=== PATIENT | female | born 1940 | race Caucasian/White ===

== ENCOUNTER → 2018-04-12 14:52 | Outpatient (CLI) | payer MEDICARE, SELFPAY ==
--- NOTE | 2018-04-12 | DI.MRI.S_ITS ---
PROCEDURE: MR KNEE LT WO CON INDICATIONS: ARTHIRITIS OF LEFT KNEE TECHNIQUE: Noncontrast sagittal PD fast spin echo and T2 fast spin echo with fat saturation, sagittal 3-D FLASH with fat saturation; coronal T1 spin echo and PD fast spin echo with fat saturation, and axial PD fast spin echo with fat saturation through the knee. COMPARISON: [facility], MR, KNEE LT W/O CONTRAST, 08/14/2008, 13:07. FINDINGS: Image quality: Diagnostic. Bones and joint: There is no acute fracture or dislocation. No suspicious osseous lesions are evident. There is a moderate-sized knee joint effusion with an associated moderate-sized Jordan's cyst. There may be a small joint body on the upper portion of the Jordan's cyst. Extensive irregularity of the hyaline articular cartilage within the patellofemoral compartment and at the lateral tibiofemoral compartment is present with small to moderate-sized irregular full-thickness cartilaginous defects present. Underlying degenerative/reactive marrow changes are identified involving the lateral femoral condyle, lateral tibial plateau, and the patella. Developing marginal osteophytes are noted within all 3 compartments. There is mild irregularity of the hyaline articular cartilage within the medial compartment. The degree of chondromalacia has increased in the interim. Cruciate ligaments: The anterior and posterior cruciate ligaments are intact. However, the anterior cruciate ligament is somewhat thickened, which is suspicious for scarring from previous partial thickness injury. Menisci: There is degenerative signal of the medial and lateral menisci. There is a focal blunting on the mid aspect of the body of the lateral meniscus with only a small amount of meniscal tissue extending through the posterior horn, which may be related to previous partial meniscectomy. This appearance is new since the prior study. No detached meniscal fragments are appreciated. The medial meniscus is intact and otherwise within normal limits. Medial structures: The medial collateral ligament is intact. The semimembranosus tendon insertion is intact. The imaged portions of the pes anserinus tendons are unremarkable. No significant fluid is contained within the pes anserinus bursa. Heterogeneity of the medial patellofemoral ligament is present. Lateral structures: The popliteal tendon is intact. The lateral collateral ligament proper (fibular collateral ligament) and the proximal tibiofibular ligaments are intact. The distal aspect of the biceps femoris tendon and the iliotibial band are intact. Anterior structures: The quadriceps and patellar tendons are intact. There is edema identified within the superolateral margin of the infrapatellar fat pad. IMPRESSION: 1. Mild interval increase in degree of degenerative changes of the left knee. 2. Probable interval partial lateral meniscectomy. Please correlate clinically. 3. Moderate-sized knee joint effusion with an associated Jordan's cyst. 4. Possible scarring of the anterior cruciate ligament. No full-thickness tear. 5. Heterogeneity of the medial patellofemoral ligament may be related to interval trauma versus postoperative change. Dictated by: Carlito Riley M.D. on 04/12/2018 at 16:47 Approved by: Carlito Riley M.D. on 04/12/2018 at 16:54
== END ==
PROVIDERS: Visit Provider Orthopaedic Surgery
DX: M17.12 Unilateral primary osteoarthritis, left knee (principal); M25.462 Effusion, left knee; M71.22 Synovial cyst of popliteal space [Baker], left knee
CPT/HCPCS: 73721

== ENCOUNTER 2025-02-27 11:44 | Inpatient (IN) | payer MEDICARE, SELFPAY ==
[2025-02-19 13:59] VITALS: BMI 25.6
[2025-02-26] VITALS (12 sets, daily range): BP systolic 124–166; BP diastolic 42–86; PULSE 61–78; RESP 13–18; TEMP 36.1–36.5; O2SAT 97–100; BMI 26.0
--- NOTE | 2025-02-26 06:00 | DI.RAD.S_ITS ---
PROCEDURE: XR KNEE LT 1TO2V INDICATIONS: TKA TECHNIQUE: 2 view(s) of the knee acquired. COMPARISON: None. FINDINGS: Bones: Patient is status post knee joint arthroplasty. Hardware components are in expected positions. Visualized bony structures are intact. Soft tissues: Overlying postoperative changes are noted. IMPRESSION: Expected post-operative appearance of a knee arthroplasty. Dictated by: Eduardo Harmon M.D. on 02/27/2025 at 9:38 Approved by: Eduardo Harmon M.D. on 02/27/2025 at 9:39
[2025-02-26] MEDS: ACETAMINOPHEN 325 MG TABLET 975 MG PO (12:58)
[2025-02-26] MEDS: LACTATED RINGERS 1,000 ML 42 ML IV ×2 (12:58→15:39)
[2025-02-26] MEDS: VANCOMYCIN 1,000 MG in SODIUM CHLORIDE 0.9% 250 ML 250 MG IV (12:59)
--- NOTE | 2025-02-26 14:33 | PM.PREOP ---
Pre-operative Note Interval Note History & Physical reviewed/Exam performed by Physician: Yes Changes to H&P: No
--- NOTE | 2025-02-26 14:34 | PM.PREOP ---
Pre-operative Note Interval Note History & Physical reviewed/Exam performed by Physician: Yes Changes to H&P: No
--- NOTE | 2025-02-26 14:35 | PM.PREOP ---
Pre-operative Note Interval Note History & Physical reviewed/Exam performed by Physician: Yes Changes to H&P: No
--- NOTE | 2025-02-26 14:47 | PM.OP.1 ---
Operative Date/Time/Diagnoses Date of procedure: 02/26/25 Time of procedure: 15:00 Pre-op diagnosis: left knee OA Post-op diagnosis: same Procedure & Clinicians Procedure: Left total knee arthroplasty Same procedure as scheduled: Yes Indications: The patient has had progressively worsening left knee pain with radiographic changes consistent with arthritis. Non-operative management has failed and the patient has requested total knee replacement. The risks, benefits and alternatives to surgery were discussed with the patient prior to proceeding. Risks discussed included, but were not limited to, failure to relieve pain, stiffness, infection, nerve damage, deep venous thrombosis, pulmonary embolism, stroke, coma, heart attack, permanent paralysis and , as well as the potential need for eventual revision of the prosthetic. Surgeon: Nayana Zabala Desktop Support Specialist: Anil Davila Anesthesia Type: General and Peripheral nerve block Operative Notes Findings: With severe left knee OA, adequate stability Closure Type: primary Specimen(s): none sent Prosthetic devices, grafts, tissues, transplants, or devices: Zabala and nephsanchez tilley BCS2 size femur5, size 4 tibia, patella 35 by 7.5, poly 9 Estimated Blood Loss (mL): 250 Tourniquet time (min): 78 Procedure in detail: The patient was seen in the pre-operative area, where the patient identified the left knee as the operative site and this was marked with my initials. The patient received pre-operative antibiotics, and was taken to the operating room and placed on the operative table in the supine position. After satisfactory anesthesia, a multimedia designer out was performed. The left leg was encircled with a tourniquet about the proximal thigh, and the leg was prepared from the toes to the tourniquet with ChloroPrep in the usual fashion and draped through sterile drapes. The leg was elevated and exsanguinated with Eschmark bandage and the tourniquet inflated to [250] mmHg pressure. A PA was used during the procedure was essential for intraoperative retraction and safe implantation of the components. The knee was approached through an approximately 18 cm incision centered over the patella and carried into the knee through a medial parapatellar arthrotomy. Portion of the medial and lateral meniscus was resected. Soft tissue was carefully mobilized around the patella the patella was measured with a caliper. Bone was resected from the patella and the patellar height was reconstituted with up an appropriate sized patellar component. A cover was then placed on the patella. A small amount of additional medial and lateral meniscus was resected. Pins were placed for Patrick assisted robotic navigation in the femur and the adjustable tibial guide was pinned to the tibia. The Cori robotic assisted bur was used for the distal femoral resection. It looked like an appropriate distal femoral cut and the cut was made without difficulty. The rotation was assessed and the appropriate size femoral guide was placed on the distal femur and finishing cuts were made. There was no evidence of notching. The anterior, posterior and chamfer cuts were then made. The posterior osteophytes and soft tissues were then removed. The posterior capsule was injected with part of a mixture of 60 ml 0.25% Marcaine mixed with 20 ml Exparel for post operative pain control. The remainder of this mixture was injected into the capsule and subcutaneous tissues during cement curing. The tibial guide was meticulously navigated with the Cori robotic alignment. The proximal tibial cut was made after the guide had been appropriately adjusted. The rotation was assessed. The patient was placed in extension residual medial and lateral meniscus as well as any residual bone was carefully resected. [No] additional tibia was resected. Hemostasis was achieved especially posteriorly. Additional local was injected into the posterior capsule. The extension gap was assessed. The femoral component was trial was placed and the notch was finished. Trial tibial and femoral components were then placed and the knee placed through a range of motion. Range of motion was [0-130], with good stability throughout the range. The trials were then removed, and the tibia was finished. The bone was prepared with pulsatile lavage, and dried with a sponge. Cement was applied and the final prosthetics placed. Excess cement was removed during and after cement curing. A brief Betadine soak was performed. After confirming there was no extruded cement posteriorly, the final tibial insert was placed. The knee was copiously irrigated and the tourniquet deflated. Hemostasis was obtained with the Bovie cautery. The capsule was closed with interrupted # 1 Vicryl suture. The subcutaneous layer was closed with barbed sutures, and the skin with a running 3-0 V-Lock suture and Surgical glue. An Aquacel Ag dressing was applied and the patient was taken to recovery having tolerated the procedure well. Complications: none Post-operative Condition: stable Disposition: Acute Care Plan for aftercare: The patient will be maintained on a standard total knee replacement protocol with weight bearing as tolerated. The patient will receive aspirin and sequential compression devices for DVT prophylaxis. The patient will be discharged home when safe for the home environment.
[2025-02-26] MEDS: CEFAZOLIN 2 GM/100 ML PREMIX 100 ML IV ×2 (15:00→22:42)
--- NOTE | 2025-02-26 15:12 | SUR.OPER ---
Supine on padded OR bed. Pillow under head, arms secured on padded armboards <90 degree abduction. Safety belt across torso. Non-operative leg secured with tape over blanket over lower leg. Operative leg secured in DeMayo/Emilio/Nathe positioner. Foam padded brace at thigh of operative leg.
[2025-02-26] MEDS: TRANEXAMIC ACID 1,000 MG VIAL 1000 MG INJ ×2 (15:22→16:56)
[2025-02-26] MEDS: BUPIVACAINE LIPOSOME 266 MG/20 ML VIAL INJ (15:32)
[2025-02-26] MEDS: BUPIVACAINE 0.25% (PF) 60 ML, EPINEPHrine 0.3 MG INJ (15:32)
[2025-02-26] MEDS: OXYCODONE IR 5 MG TABLET PO (18:14)
[2025-02-26] MEDS: ONDANSETRON 4 MG/2 ML INJ IV (18:19)
[2025-02-26] MEDS: LACTATED RINGERS 1,000 ML 100 ML IV ×2 (18:22→23:02)
[2025-02-26] MEDS: ACETAMINOPHEN 325 MG TABLET 650 MG PO (18:27)
--- NOTE | 2025-02-26 18:36 | PC.NURSE ---
Patient arrives from PACU at 1745 this evening. She is initially somnolent but able to speak with her on the phone. She reports spinal block wearing off and pain to L knee and down inner thigh becoming more severe. She request prn oxycodone with zofran due to n/v with pain medication/narcotics. Admission assessment completed, SCD's in place, Call light in reach, bed alarm on, purewick in place, IVF LR at 100ml/hr, frequent rounding
[2025-02-26] MEDS: FAMOTIDINE 20 MG TABLET PO (20:29)
[2025-02-26] MEDS: ALPRAZolam 0.25 MG TABLET 0.5 MG PO (20:29)
[2025-02-26] MEDS: DOCUSATE 100 MG CAPSULE PO (20:29)
[2025-02-26] MEDS: ASPIRIN EC 81 MG TABLET PO (20:29)
[2025-02-26] MEDS: atenoloL 25 MG TABLET PO (20:30)
[2025-02-26] MEDS: KETOROLAC 30 MG/ML VIAL 15 MG IV (20:58)
[2025-02-27] VITALS: BP 158/68; PULSE 71; RESP 16; TEMP 36.2; O2SAT 99
[2025-02-27] MEDS: ACETAMINOPHEN 325 MG TABLET 650 MG PO ×4 (00:18→17:24)
[2025-02-27] MEDS: OXYCODONE IR 5 MG TABLET PO ×3 (00:19→17:25)
[2025-02-27] MEDS: ALPRAZolam 0.25 MG TABLET 0.5 MG PO (02:13)
--- NOTE | 2025-02-27 02:16 | PC.NURSE ---
C/O insomnia, states I can't sleep with all the noises from the machines. Requested another 0.5mg. of Xanax, Dr. Zabala notified order received to administered additional 0.5 mg. of Xanax. Order implemented, will continue plan of care & monitor.
[2025-02-27 05:00] VITALS: BP 134/61; PULSE 88; RESP 18; TEMP 36.6; O2SAT 94
[2025-02-27 05:55] LABS: Hematocrit 33.7 % (36-46); Hemoglobin 11.9 g/dL (12.0-16.0)
[2025-02-27] MEDS: CEFAZOLIN 2 GM/100 ML PREMIX 100 ML IV (06:39)
--- NOTE | 2025-02-27 07:38 | PM.PNPO.1 ---
Subjective Subjective Interval history: She had fair pain control overnight. She has had increased pain in her low back with pain radiating down the left leg. Her knee pain is adequately controlled. She notes she has had some increased problems with incontinence postoperatively. She previously had some mild urge incontinence. Exam Vital Signs (past 8 hours): - 02/27/25 00:00 02/27/25 05:00 Temperature 97.1 F L 97.8 F Pulse Rate 71 88 Respiratory Rate 16 18 Blood Pressure 158/68 H 134/61 Pulse Oximetry 99 94 Oxygen Flow Rate 0 0 Oxygen Delivery Method Nasal Cannula Oxygen Flow Rate 0 Narrative Exam Narrative: She was resting comfortably in bed, her dressings intact, she can fire toe flexors and extensors bilaterally, calves are soft bilaterally, she does have some numbness in bilateral lower extremities Objective Labs 02/27/25 05:00 Labs: Laboratory Results - last 24 hr 02/27/25 05:00 Hgb 11.9 L Hct 33.7 L PFSH Medical History Vertigo Anesthesia complication PONV (postoperative nausea and vomiting) Skin cancer Osteoarthritis Impaired fasting glucose Sleep apnea Asthma Ringing in ears Panic attacks HTN (hypertension) HLD (hyperlipidemia) GERD (gastroesophageal reflux disease) Fibromyalgia Chronic sinusitis Anxiety Anemia Carotid artery disease Surgical History (Updated 02/19/25 @ 14:26 by Annalise Hill RN) History of surgery Status post trigger finger release Hx of toe surgery (12/23/23) Hx of arthroscopy of left knee Hx of arthroscopy of right knee Hx of tonsillectomy History of esophagogastroduodenoscopy (EGD) Hx of colonoscopy History of hysterectomy Hx of dilation and curettage History of left-sided carotid endarterectomy (2012) History of right-sided carotid endarterectomy (~2007) Hx of sinus surgery Hx of bilateral cataract extraction Social History household members: spouse Smoking Status: Never smoker alcohol intake: former Assessment & Plan Post-op Postoperative Procedures: Procedures Operation Date: 02/26/25 13:45 Actual Procedure Side Surgeon p Total Knee Arthroplasty - Robot Left Nayana Zabala MD Postoperative day: 1 Postoperative status: other (Some sciatica and some increased urinary incontinence. Adequate knee pain control.) Postoperative status narrative: Progressing but needs mobilization with physical therapy. Postoperative plan: routine post-op care Postoperative plan narrative: We plan to mobilize her with physical therapy today. We will follow her urinary incontinence complaints. She can be discharged to home likely tomorrow as long as she is safe with physical therapy. Quality VTE Deep Vein Thrombosis/Pulmonary Embolism Present on Admission: No
[2025-02-27 08:00] VITALS: BP 135/58; PULSE 66; RESP 16; TEMP 36.5; O2SAT 93
--- NOTE | 2025-02-27 11:10 | PT.IIE ---
Current Diagnoses Unilateral primary osteoarthritis, left knee (02/27/25) Surgery Performed Operation Date: 02/26/25 13:45 Actual Procedures p Total Knee Arthroplasty - Robot(Left) - Nayana Zabala MD Surgical History (Last Updated 02/19/25 @ 14:26 by Annalise Hill, RN) History of esophagogastroduodenoscopy (EGD) History of hysterectomy History of left-sided carotid endarterectomy (2012) History of right-sided carotid endarterectomy (~2007) History of surgery Hx of arthroscopy of left knee Hx of arthroscopy of right knee Hx of bilateral cataract extraction Hx of colonoscopy Hx of dilation and curettage Hx of sinus surgery Hx of toe surgery (12/23/23) Hx of tonsillectomy Status post trigger finger release Medical History (Last Reviewed 02/26/25 @ 12:13 by Fernanda Alicia RN) Anemia Anesthesia complication Anxiety Asthma Carotid artery disease Chronic sinusitis Fibromyalgia GERD (gastroesophageal reflux disease) HLD (hyperlipidemia) HTN (hypertension) Impaired fasting glucose Osteoarthritis Panic attacks PONV (postoperative nausea and vomiting) Ringing in ears Skin cancer Sleep apnea Vertigo Physical Therapy Inpatient Evaluation/Re-Eval M1 PT/OT-IP Prior Functional Status Start: 02/27/25 07:53 Freq: NEEDED Status: Active Protocol: Document 02/27/25 11:10 AB (Rec: 02/27/25 13:11 AB [id number]) Medical Review Prior Functional Status Medical History Reviewed Yes Communication able to make needs known Mobility and Gait pt stated that she was independent with all mobilities and ambulation without AD Social History Household Members spouse Living Arrangements House Number of Floors (Floors) Two Floors Number of Stairs To Enter/Railing? pt stays on main level of the house has 1 platform step + 2 steps without rails to enter the house Home Environment Standard Height Toilet,Walk in Shower Home Equipment Front Wheel Walker,Four Wheel Walker,Quad Cane,Straight Cane ,Shower Seat without Backrest, Hand Held Shower,Grab Bars In Shower Additional Social History Comment pt has a toilet safety frame pt has an adjustable bed, hurrycane spouse with back problems and can only provide limited assistance to pt M2 PT-IP Current Condition Start: 02/27/25 07:53 Freq: NEEDED Status: Active Protocol: Document 02/27/25 11:10 AB (Rec: 02/27/25 13:11 AB [id number]) Physical Therapy Current Condition Current Condition Evaluation Date 02/27/25 Treatment Diagnosis s/p L TKA; difficulty in walking Onset Date 02/26/25 M3 PT-IP Subjective Start: 02/27/25 07:53 Freq: NEEDED Status: Active Protocol: Document 02/27/25 11:10 AB (Rec: 02/27/25 13:11 AB [id number]) Subjective Physical Therapy Visit Type Type Initial Evaluation Visit Start Time 11:10 Visit Stop Time 11:45 Number of TERMINATION CLERK Visits 0 Physical Therapy Visit Comments Patient Comments agreeable to do PT Therapy Pain Assessment Pain When Pain Assessed During Mobility Pain Present Pain Present Pain Reported Location Left Knee Intensity 4 Scale Used Numeric (0 - 10) Pain Management Techniques Apply Cold,Distraction, Modification of Treatment,Re- positioning,Timing of Activity with Medications M4 PT-IP Mobility and Gait Start: 02/27/25 07:53 Freq: NEEDED Status: Active Protocol: Document 02/27/25 11:10 AB (Rec: 02/27/25 13:11 [id number]) PT-Bed Mobility Assessment Supine to Sit Supine to Sit Standby Assistance Sit to Supine Sit to Supine Standby Assistance PT-Transfer Assessment Sit to and From Stand Sit to and from Stand Contact Guard Assistance,1 Person Assistance,Use of Upper Extremities Equipment Transfer Assistive Device Gait Belt,Front Wheeled Walker Orthotic/Prosthetic Devices or Brace: No Transfers Transfer Destination Bed,Chair Transfer Technique ambulated Transfer Ability Level of Assist Contact Guard Assistance,1 Person Assistance,Use of Upper Extremities Comments Mobility Comments pt sitting on the chair and agreeable to do PT. obtained PLOF and home set up. post-op folder provided and reviewed contents. completed seated heel slides pt completed sit to stand CGA and ambulated in room ~ 35 ft using fWW CGA. pt sat on EOB. completed sit<>supine SBA. pt completed sit to stand from EOB CGA and step transfer to chair using FWW CGA. positioned pt on the chair. call light and table placed within reach. pt stated that spouse will be coming in at ~ 2pm. will attempt caregiver training this afternoon. pt agreed. Gait Assessment Gait Gait Assistance Required: Contact Guard Assist Distance (Feet) 35 Able to Maintain Weight Bearing Status Yes During Gait Assistive Devices Assistive Device Gait Belt,Front Wheeled Walker Orthotic/Prosthetic Devices or Brace: No Gait Deviations General Gait Pattern Decreased Stride Length, Decreased Feet Clearance Factors Limiting Gait Function Factors Limiting Gait Function Decreased Activity Tolerance, Decreased Strength,Difficulty Following Directions,Limited Range of Motion,Pain,Poor Balance,Poor Safety Awareness PT-Balance Assessment Sitting Balance and Reactions Static Sitting Balance Ability Normal Dynamic Sitting Balance Ability Good Standing Balance and Reactions Static Standing Balance Ability Fair Dynamic Standing Balance Ability Fair Device Used FWW M5 PT-IP Objective Assessments Start: 02/27/25 07:53 Freq: NEEDED Status: Active Protocol: Document 02/27/25 11:10 AB (Rec: 02/27/25 13:11 AB [id number]) Orientation Orientation/Cognition Level of Alertness Alert Orientation Name,Place,Situation Language Function Ability No Deficits Noted Safety Awareness Decreased Safety Awareness Memory Description No Deficits Noted Gross Range of Motion Lower Extremity ROM Assessment Left Impaired Impairments L knee flexion: ~ 90 deg Strength Lower Extremity Strength Assessment Left Impaired Hip 4-/5 Knee 4-/5 Muscle Tone Muscle Tone WNL Yes M6 PT-IP Treatment Start: 02/27/25 07:53 Freq: NEEDED Status: Active Protocol: Document 02/27/25 11:10 AB (Rec: 02/27/25 13:11 AB [id number]) Physical Therapy Treatment Exercises Exercises Heel Slides Education Education Provided Precautions,Weight Bearing Status,Post-Op Packet,Safety M7 PT-IP Assessment and Plan Start: 02/27/25 07:53 Freq: NEEDED Status: Active Protocol: Document 02/27/25 11:10 AB (Rec: 02/27/25 13:11 AB [id number]) PT Summary Assessment and Plan Potential Rehabilitation Potential Good Status of Condition at Evaluation Evolving Summary Impairments Pain,ROM,Strength,Balance, Coordination,Sensation,Tone, Cognition,Bed Mobility, Transfers,Gait,Activity Tolerance Assessment Summary pt is an 85 y/o F s/p L TKA POD 1. pt is WBAT on LLE. pt requiring SBA for bed mobility and CGA for transfers and ambulation using fWW. pt lives with spouse but stated that spouse has back problems and limited to assistance he can provide to pt. will conduct caregiver training when appropriate as well as stair climbing training. will continue to assess. Goals Bed Mobility Goal Independent Transfer Goal Independent,Front Wheeled Walker Gait Goal Independent,Front Wheel Walker Gait Distance 150 Other Goals up/down 1 platform step using FWW + 2 steps using cane + CHAIN MAKER CGA Days to Meet Goals 5 Frequency of Treatment Frequency Of Treatment Twice a Day Treatment Plan Physical Therapy Treatment Plan Bed Mobility Training,Transfer Training,Gait Training, Therapeutic Exercise,Balance Retraining,Post Op Education, Discharge Planning,Hot or Cold Pack,Neuromuscular Re-ed, Coordination Retraining,Manual Therapy Other Recommendations and Next Treatment caregiver training Focus Weight Bearing Status Weight Bearing Status Weight Bear as Tolerated Allowed Weight Bearing Amount (enter % LLE WBAT or #) (%) Recommendations To Nursing Amount of Assist Needed 1 Person Assist Discharge Recommendations PT Discharge Recommendations Home with Assistance,Home Health Transportation Needs at Discharge Private Vehicle - PT assist 1
[2025-02-27] MEDS: ASPIRIN EC 81 MG TABLET PO (11:51)
[2025-02-27] MEDS: DOCUSATE 100 MG CAPSULE PO (11:51)
[2025-02-27 12:00] VITALS: BP 140/69; PULSE 61
--- NOTE | 2025-02-27 13:55 | OT.IP.EVAL ---
Current Diagnoses Unilateral primary osteoarthritis, left knee (02/27/25) Surgery Performed Operation Date: 02/26/25 13:45 Actual Procedures p Total Knee Arthroplasty - Robot(Left) - Nayana Zabala MD Past Medical History (Last Reviewed 02/26/25 @ 12:13 by Fernanda Alicia, [place]) Anemia Anesthesia complication Anxiety Asthma Carotid artery disease Chronic sinusitis Fibromyalgia GERD (gastroesophageal reflux disease) HLD (hyperlipidemia) HTN (hypertension) Impaired fasting glucose Osteoarthritis Panic attacks PONV (postoperative nausea and vomiting) Ringing in ears Skin cancer Sleep apnea Vertigo Surgical History (Last Updated 02/19/25 @ 14:26 by Annalise Hill, [place]) History of esophagogastroduodenoscopy (EGD) History of hysterectomy History of left-sided carotid endarterectomy (2012) History of right-sided carotid endarterectomy (~2007) History of surgery Hx of arthroscopy of left knee Hx of arthroscopy of right knee Hx of bilateral cataract extraction Hx of colonoscopy Hx of dilation and curettage Hx of sinus surgery Hx of toe surgery (12/23/23) Hx of tonsillectomy Status post trigger finger release Occupational Therapy Inpatient Evaluation/Re-Eval M1 PT/OT-IP Prior Functional Status Start: 02/27/25 07:53 Freq: NEEDED Status: Active Protocol: Document 02/27/25 14:08 CGR (Rec: 02/27/25 14:57 CGR Desktop) Medical Review Prior Functional Status Medical History Reviewed Yes Communication able to make needs known Mobility and Gait pt stated that she was independent with all mobilities and ambulation without AD Activities of Daily Living and IADL's Pt states she was IND in ADLs at baseline but has the equipment from previous surgeries Social History Household Members spouse Living Arrangements House Number of Floors (Floors) Two Floors Number of Stairs To Enter/Railing? 2-3 steps without railing. Pt stays on the main level. Home Environment Standard Height Toilet,Walk in Shower Home Equipment Front Wheel Walker,Straight Cane,Manual Wheelchair,Shower Seat without Backrest,Hand Held Shower,Grab Bars Near Toilet Employment Status Retired Additional Social History Comment Pt has an adjustable bed and a toilet safety frame. M2 OT-IP Current Condition Start: 02/27/25 14:07 Freq: Status: Active Protocol: Document 02/27/25 14:08 CGR (Rec: 02/27/25 14:57 CGR Desktop) Occupational Therapy Current Condition Current Condition Evaluation Date 02/26/25 Treatment Diagnosis L TKA Diagnosis Onset Date 02/27/25 Weight Bearing Status Weight Bearing Status Weight Bear as Tolerated M3 OT- IP Subjective and Pain Start: 02/27/25 14:07 Freq: Status: Active Protocol: Document 02/27/25 14:08 CGR (Rec: 02/27/25 14:57 CGR Desktop) OT- Subjective Occupational Therapy Visit Type Type Initial Evaluation Visit Start Time 13:41 Visit Stop Time 13:55 Notes Pt is up in bathroom when OT enters OT Pain Assessment Pain When Pain Assessed During Mobility Pain Present Pain Present Pain Reported Location Left Knee Intensity 4 Scale Used Numeric (0 - 10) Management Techniques Modification of Treatment,Re- positioning M4 OT- IP ADL's Start: 02/27/25 14:07 Freq: Status: Active Protocol: Document 02/27/25 14:08 CGR (Rec: 02/27/25 14:57 CGR Desktop) OT [id number] Comments OT Self-Feeding Comments not meal time OT ADL-Grooming General Evaluation Grooming Ability Independent Areas Needing Assistance Combing/Brushing Hair,Face Washing Comments OT Grooming Comments standing at sink OT ADL-Oral Care Comments Oral Care Comments not performed OT ADL-Dressing General Eval Lower Body Dressing Ability Independent Areas Needing Assistance Socks Comments OT Dressing Comments sitting in bed OT ADL-Toileting General Evaluation Toileting Ability Independent Comments OT Toileting Comments sitting on toilet OT ADL-Bathing Comments OT Bathing Comments not performed M5 OT- IP IADL's Start: 02/27/25 14:07 Freq: Status: Active Protocol: Document 02/27/25 14:08 CGR (Rec: 02/27/25 14:57 CGR Desktop) OT-Instrumental Activities of Daily Living Deficits IADL Deficits Identified No Deficits Home Safety Awareness Awareness of Need for Assistance at Home Good Awareness Ability to Problem Solve Emergency Able to Problem Solve Situations Medication Management Medication Management No Deficits Identified Money Management Money Management No Deficits Identified Meal Preparation Meal Preparation No Deficits Identified Psychiatric Nurse Practitioner Psychiatric Nurse Practitioner No Deficits Identified Driving Driving Comments Pt is an active double bottom driver M6 OT- IP Functional Cognition Start: 02/27/25 14:07 Freq: Status: Active Protocol: Document 02/27/25 14:08 CGR (Rec: 02/27/25 14:57 CGR Desktop) Cognitive Factors Limiting Selfcare Function Cognitive Ability Level of Alertness Alert Patient Orientation Name,Age,Birthday,Month,Date, Year,Day of Week,Place, Situation Attention Span Ability Capable of Focused Attention, Capable of Sustained Attention Ability to Follow Commands Able to Follow Multi-Step Commands OT- Vision and Hearing OT- Hearing Assessment OT- Hearing Assessment WFL OT- Vision Assessment Visual Acuity WFL Visual Attentiveness WFL Occular Pursuits WFL Visual Convergence WFL M7 OT- IP Mobility and Balance Start: 02/27/25 14:07 Freq: Status: Active Protocol: Document 02/27/25 14:08 CGR (Rec: 02/27/25 14:57 CGR Desktop) OT- Bed Mobility Assessment Sit to Supine Sit to Supine Assist Independent Scooting Scooting to Edge of Bed Independent OT-Transfer Assessment Sit to and From Stand Sit to and from Stand Independent,1 Person Assistance Transfers Transfer Ability Independent,1 Person Assistance Technique Transfer Destination Bed,Toilet Transfer Technique Stand Step Pivot Devices Transfer Assistive Devices Front Wheeled Walker Comments Mobility Comments mobility around the room and bathroom OT- Gait Assessment Gait Gait Assistance Required: Independent Assistive Devices Assistive Device Front Wheeled Walker Comments Gait Ability Comments mobility in the room and bathroom OT- Balance Assessment Sitting Balance and Reactions Static Sitting Balance Ability Normal Dynamic Sitting Balance Ability Normal M8 OT- IP Objective Assessments Start: 02/27/25 14:07 Freq: Status: Active Protocol: Document 02/27/25 14:08 CGR (Rec: 02/27/25 14:57 CGR Desktop) OT Gross Range of Motion Upper Extremity Range of Motion Assessment Within Functional Limits OT Strength Upper Extremity Strength Assessment Within Functional Limits Comments Strength Comments 4/5 throughout OT- Coordination Assessment Upper Extremity Finger to Nose Test Within Functional Limits Finger Tapping Test Within Functional Limits OT-Muscle Tone Assessment Muscle Tone WNL Yes OT Sensation Assessment Edema Edema Absent M9 OT- IP Assessment and Plan Start: 02/27/25 14:07 Freq: Status: Active Protocol: Document 02/27/25 14:08 CGR (Rec: 02/27/25 14:57 CGR Desktop) OT Summary Assessment and Plan Potential Rehabilitation Potential Excellent Analytic Complexity at Evaluation Low Summary OT Impairments Pain Progress Towards Goals Progressing Toward Goals,Safe For Discharge,Goals Met Assessment Summary Pt presents as a low complexity evaluation s/p admit for L TKA. Pt is progressing well and IND in all activity today. She is requesting to go home today. Pt has her at home who can help her. Pt would benefit from 1-2 more OT sessions if pt stays overnight . Goals Grooming Goal Independent Dressing Goal Independent Toileting Goal Independent Bathing Goal Independent Toilet Transfer Goal Independent Shower Transfer Goal Independent Days to Meet Goals 2 Frequency of Treatment Other frequency 5x per week Treatment Plan OT Treatment Plan ADL Training,Functional Mobility,Patient/Family Education,Discharge Planning Other Treatment Recommendations and Next shower Treatment Focus Discharge Recommendations OT Discharge Recommendations Home with Assistance Transportation Needs at Discharge Private Vehicle
--- NOTE | 2025-02-27 14:55 | PT.IPTN ---
Current Diagnoses Unilateral primary osteoarthritis, left knee (02/27/25) Surgery Performed Operation Date: 02/26/25 13:45 Actual Procedures p Total Knee Arthroplasty - Robot(Left) - Nayana Zabala MD Physical Therapy Treatment Note M2 PT-IP Current Condition Start: 02/27/25 07:53 Freq: NEEDED Status: Active Protocol: Document 02/27/25 11:10 AB (Rec: 02/27/25 13:11 AB [id number]) Physical Therapy Current Condition Current Condition Evaluation Date 02/27/25 Treatment Diagnosis s/p L TKA; difficulty in walking Onset Date 02/26/25 M3 PT-IP Subjective Start: 02/27/25 07:53 Freq: NEEDED Status: Active Protocol: Document 02/27/25 14:55 AB (Rec: 02/27/25 17:32 AB [id number]) Subjective Physical Therapy Visit Type Type Treatment Note Visit Start Time 14:55 Visit Stop Time 16:00 Number of PHYSICAL FITNESS TRAINER Visits 0 Therapy Pain Assessment Pain When Pain Assessed At Rest Pain Present Pain Present Pain Reported Location Left Knee Intensity 4 Pain Management Techniques Apply Cold,Distraction, Modification of Treatment,Re- positioning,Timing of Activity with Medications M4 PT-IP Mobility and Gait Start: 02/27/25 07:53 Freq: NEEDED Status: Active Protocol: Document 02/27/25 14:55 AB (Rec: 02/27/25 17:32 AB [id number]) PT-Bed Mobility Assessment Supine to Sit Supine to Sit Standby Assistance PT-Transfer Assessment Sit to and From Stand Sit to and from Stand Standby Assistance,Contact Guard Assistance,1 Person Assistance,Use of Upper Extremities Equipment Transfer Assistive Device Gait Belt,4 Wheeled Walker Orthotic/Prosthetic Devices or Brace: No Transfers Transfer Destination Bed,Chair Transfer Technique ambulated Transfer Ability Level of Assist Contact Guard Assistance,1 Person Assistance,Use of Upper Extremities Comments Mobility Comments pt in bed and agreed to do PT. spouse in room. pt stated this morning that spouse ordered a FWW for her and will be arriving today. Clarified with spouse and stated that it is not coming until tomorrow. caregiver training. pt completed supine to sit SBA. educated spouse on how to use safety belt and how to assist pt. spouse was able to put safety belt on with pt's assistance. educated pt on how to use 4WW and how to manage brakes. spouse assisted pt with sit to stand and ambulation in room SBA to CGA using 4WW. pt sat back on chair. pt agreed to do stairs. sit to stand from chair SBA and ambulated in the hallway using 4WW ~ 125 ft SBA. pt can be impulsive and needs cues for safety. stair climbing training. educated pt and spouse on how to do stairs. pt completed up /down platform step using 4WW and then using quad cane with PERSONAL LINES ACCOUNT MANAGER max A and cues. PT initially assisted pt. pt repeated with spouse assisting and completed. assisted pt back to her room. ambulated from w/c to chair using 4WW SBA ~ 20 ft. positioned pt on the chair. ice pack provided. call light and table placed within reach. Gait Assessment Gait Gait Assistance Required: Standby Assistance,Contact Guard Assist Distance (Feet) 30 Able to Maintain Weight Bearing Status Yes During Gait Assistive Devices Assistive Device Gait Belt,4 Wheeled Walker Orthotic/Prosthetic Devices or Brace: No Gait Deviations General Gait Pattern Decreased Stride Length, Decreased Feet Clearance Factors Limiting Gait Function Factors Limiting Gait Function Decreased Activity Tolerance, Decreased Strength,Limited Range of Motion,Pain,Poor Balance,Poor Safety Awareness Stair Climbing Assessment Evaluation Level of Assist On Stairs Maximal Assistance,1 Person Assistance Devices Stair Climbing Assistive Devices Small Base Quad Cane Technique/Endurance Stair Climbing Direction Ascend and Descend Stair Climbing Technique Step to Step Number of Steps Climbed 1 Stair Climbing Set # Repetitions (reps) 4 M5 PT-IP Objective Assessments Start: 02/27/25 07:53 Freq: NEEDED Status: Active Protocol: Document 02/27/25 11:10 AB (Rec: 02/27/25 13:11 AB [id number]) Orientation Orientation/Cognition Level of Alertness Alert Orientation Name,Place,Situation Language Function Ability No Deficits Noted Safety Awareness Decreased Safety Awareness Memory Description No Deficits Noted Gross Range of Motion Lower Extremity ROM Assessment Left Impaired Impairments L knee flexion: ~ 90 deg Strength Lower Extremity Strength Assessment Left Impaired Hip 4-/5 Knee 4-/5 Muscle Tone Muscle Tone WNL Yes M6 PT-IP Treatment Start: 02/27/25 07:53 Freq: NEEDED Status: Active Protocol: Document 02/27/25 14:55 AB (Rec: 02/27/25 17:32 AB [id number]) Physical Therapy Treatment Education Education Provided Safety M7 PT-IP Assessment and Plan Start: 02/27/25 07:53 Freq: NEEDED Status: Active Protocol: Document 02/27/25 14:55 AB (Rec: 02/27/25 17:32 AB [id number]) PT Summary Assessment and Plan Potential Rehabilitation Potential Good Summary Impairments Pain,ROM,Strength,Balance, Coordination,Sensation,Tone, Cognition,Bed Mobility, Transfers,Gait,Activity Tolerance Progress Towards Goals Slow Progress due to Activity Tolerance Assessment Summary caregiver training completed. pt plans to go home and spouse to assist. pt plans to have HHPT initially and then outpt PT afterwards. Goals Bed Mobility Goal Independent Transfer Goal Independent,Front Wheeled Walker,Four Wheeled Walker Gait Goal Independent,Front Wheel Walker ,Four Wheel Walker Gait Distance 150 Other Goals up/down 1 platform step using 4WW + 2 steps using cane + PERSONAL LINES ACCOUNT MANAGER CGA Days to Meet Goals 5 Frequency of Treatment Frequency Of Treatment Twice a Day Treatment Plan Physical Therapy Treatment Plan Bed Mobility Training,Transfer Training,Gait Training, Therapeutic Exercise,Balance Retraining,Post Op Education, Discharge Planning,Hot or Cold Pack,Neuromuscular Re-ed, Coordination Retraining,Manual Therapy Weight Bearing Status Weight Bearing Status Weight Bear as Tolerated Allowed Weight Bearing Amount (enter % LLE WBAT or #) (%) Recommendations To Nursing Amount of Assist Needed 1 Person Assist Discharge Recommendations PT Discharge Recommendations Home with Assistance,Home Health Transportation Needs at Discharge Private Vehicle - PT assist 1
[2025-02-27 16:00] VITALS: BP 165/72; PULSE 64; RESP 16; TEMP 36.3; O2SAT 99
--- NOTE | 2025-02-27 18:12 | PC.NURSE ---
Patient is A&OX4, VSS, afebrile on RA. She is able to get up to the bathroom today and sit in the chair. She is able to participate with OT and PT this a.m. ambulating with FWW. Her arrives this afternoon after 3 pm and PT is able to do caregiver training with patient with stairs and ambulating in the hallway. Patient and her are eager to discharge home this evening and MD Zabala notified of wishes to discharge this evening. Patient has been able to control bladder this shift and transfer to the bathroom to void. She is cleared for discharge home this evening per Surgeon with post op follow up. Patient verbalizes understanding of site care, medications, precautions, s/sx of infection, as well as post op follow up apppoinmtent. She is escorted via w/ch by CERTIFIED NURSE PRACTITIONER with all of her personal belongings including CPAP machine, suitcase, personal pillow, purse and phone at 1730 this evening.
--- NOTE | 2025-02-28 22:00 | PM.PN.1 ---
Subjective Subjective Interval history: Her said that she was doing very well yesterday afternoon and thought that she would probably get better rest at home and so she wanted to be discharged yesterday afternoon after she was cleared by therapy. She went home and had some problems with progressive nausea. She was given a prescription for Zofran and she had an abnormal reaction to the Zofran. She said that she had shakiness and prolonged vomiting. She was unable to keep anything down. She then noted some increased pain in her left knee and had difficulty walking. She was referred for an ultrasound to rule out a DVT. The ultrasound was negative. She has not had fevers or chills. She was having troubles with ongoing nausea but she did pass some gas and have a Small bowel movement. Exam Vital Signs (past 8 hours): Oxygen Delivery Method Nasal Cannula Oxygen Flow Rate 0 Narrative Exam Narrative: moderate pain with range motion in the left knee, bruising of the left knee, calf is soft distally, dressings intact, she has weakness of a straight leg raise Objective Labs 02/27/25 05:00 [facility] Medical History Vertigo Anesthesia complication PONV (postoperative nausea and vomiting) Skin cancer Osteoarthritis Impaired fasting glucose Sleep apnea Asthma Ringing in ears Panic attacks HTN (hypertension) HLD (hyperlipidemia) GERD (gastroesophageal reflux disease) Fibromyalgia Chronic sinusitis Anxiety Anemia Carotid artery disease Surgical History History of surgery Status post trigger finger release Hx of toe surgery (12/23/23) Hx of arthroscopy of left knee Hx of arthroscopy of right knee Hx of tonsillectomy History of esophagogastroduodenoscopy (EGD) Hx of colonoscopy History of hysterectomy Hx of dilation and curettage History of left-sided carotid endarterectomy (2012) History of right-sided carotid endarterectomy (~2007) Hx of sinus surgery Hx of bilateral cataract extraction Social History household members: spouse Smoking Status: Never smoker alcohol intake: former Assessment & Plan Assessment and plan (1) Constipation: Qualifiers: Constipation type: unspecified constipation type Qualified Code(s): K59.00 - Constipation, unspecified Status: Acute (2) History of total left knee replacement (TKR): Status: Acute (3) Hyponatremia: Status: Acute (4) Nausea & vomiting: Qualifiers: Vomiting type: unspecified Qualified Code(s): R11.2 - Nausea with vomiting, unspecified Status: Acute Plan she was admitted to the medicine service with hyponatremia nausea and vomiting for observation. Her knee x-rays show acceptable overall alignment and no fracture. I have recommended physical therapy. She needs an aggressive bowel program. She can probably be discharged to home tomorrow as long as her nausea is resolved and she is able to keep fluids down. Time-Based Coding :: [TOTAL MINUTES] spent with patient and on the chart (including review of chart, obtaining history, exam, reviewing outside data, placing orders, documenting exam and treatment plan, and counseling patient) on [DATE]. Quality VTE Deep Vein Thrombosis/Pulmonary Embolism Present on Admission: No
--- NOTE | 2025-03-01 07:28 | PM.PN.1 ---
Subjective Subjective Interval history: She notes that she was able to sleep overnight. She kept fluid down well. She still has a little mild nausea but it is markedly improved. She does not feel shaky or unstable this morning. She was having some ongoing knee pain. Exam Vital Signs (past 8 hours): Oxygen Delivery Method Nasal Cannula Oxygen Flow Rate 0 Narrative Exam Narrative: She was alert she is oriented she is resting comfortably in bed her abdomen is slightly distended her bowel sounds are positive. She can fire her toe flexors and extensors. Her dressings intact. She has a weak straight leg raise. Calf is soft distally. Objective Labs 02/27/25 05:00 [facility] Medical History Vertigo Anesthesia complication PONV (postoperative nausea and vomiting) Skin cancer Osteoarthritis Impaired fasting glucose Sleep apnea Asthma Ringing in ears Panic attacks HTN (hypertension) HLD (hyperlipidemia) GERD (gastroesophageal reflux disease) Fibromyalgia Chronic sinusitis Anxiety Anemia Carotid artery disease Surgical History History of surgery Status post trigger finger release Hx of toe surgery (12/23/23) Hx of arthroscopy of left knee Hx of arthroscopy of right knee Hx of tonsillectomy History of esophagogastroduodenoscopy (EGD) Hx of colonoscopy History of hysterectomy Hx of dilation and curettage History of left-sided carotid endarterectomy (2012) History of right-sided carotid endarterectomy (~2007) Hx of sinus surgery Hx of bilateral cataract extraction Social History household members: spouse Smoking Status: Never smoker alcohol intake: former Assessment & Plan Assessment and plan (1) Constipation: Qualifiers: Constipation type: unspecified constipation type Qualified Code(s): K59.00 - Constipation, unspecified Status: Acute (2) History of total left knee replacement (TKR): Status: Acute (3) Hyponatremia: Status: Acute (4) Nausea & vomiting: Qualifiers: Vomiting type: unspecified Qualified Code(s): R11.2 - Nausea with vomiting, unspecified Status: Acute Plan She was doing reasonably well. I told her we will mobilize her with physical therapy. She needs additional treatment for constipation including a suppository or enema. She can probably be discharged to home after physical therapy. she will be evaluated by Medicine later today. Time-Based Coding :: [TOTAL MINUTES] spent with patient and on the chart (including review of chart, obtaining history, exam, reviewing outside data, placing orders, documenting exam and treatment plan, and counseling patient) on [DATE]. Quality VTE Deep Vein Thrombosis/Pulmonary Embolism Present on Admission: No
== END 2025-02-27 17:30 | disposition home or self-care (01) | DRG 470 ==
LOC: OR 12:05 → AC 12:05
PROVIDERS: Admitting Provider Orthopaedic Surgery; PCP Psychiatry & Neurology Forensic Psychiatry; Referring Provider Orthopaedic Surgery; Visit Provider Orthopaedic Surgery
PROC: 0SRD0JZ Replacement of Left Knee Joint with Synthetic Substitute, Open Approach (ICD-10-PCS; CPT 27447; principal; 2025-02-26 13:45)
DX: M17.12 Unilateral primary osteoarthritis, left knee (principal); E78.5 Hyperlipidemia, unspecified; R32 Unspecified urinary incontinence; M54.42 Lumbago with sciatica, left side; Z98.890 Other specified postprocedural states
CPT/HCPCS: 36415; 73560; 85014; 85018; 97161; 97165; 97530; C1776; A9270; C1713; J0171; J0666; J0690; J1100; J1885; J2405; J2704; J3010

== ENCOUNTER 2025-02-28 12:55 | Inpatient (IN) | payer MEDICARE, SELFPAY ==
[2025-02-26 12:08] VITALS: BMI 26.0
[2025-02-28] VITALS (8 sets, daily range): BP systolic 172–196; BP diastolic 73–82; PULSE 70–84; RESP 18–21; TEMP 36.4–37.4; O2SAT 94–100; BMI 26.0
--- NOTE | 2025-02-28 13:25 | DI.US.S_ITS ---
PROCEDURE: US PERIPH VENOUS LOW EXTREM LT INDICATIONS: knee swelling, pain post surgery TECHNIQUE: Real-time imaging, as well as color and pulse Doppler interrogation, were performed of the lower extremity deep veins from the inguinal ligament to the popliteal fossa, with documentation of the visualized calf veins. COMPARISON: None. FINDINGS: The common femoral, femoral, popliteal, and the visualized calf veins are normally compressible, and free of intraluminal thrombus. Color and pulse Doppler demonstrate normal phasic intraluminal flow. There is normal augmentation response to distal compression maneuver. IMPRESSION: No findings of lower extremity deep venous thrombosis. Dictated by: Adair Mcgee M.D. on 02/28/2025 at 14:39 Approved by: Adair Mcgee M.D. on 02/28/2025 at 14:39
--- NOTE | 2025-02-28 14:48 | DI.RAD.S_ITS ---
PROCEDURE: XR CHEST 1V INDICATIONS: knee postop n/v TECHNIQUE: One view of the chest was acquired. COMPARISON: [facility], , CHEST 1VW (PORTABLE), 03/01/2015, 18:56. FINDINGS AND IMPRESSION: Low lung volumes. Diffusely prominent interstitium, possibly edema versus atypical infection. No dense consolidation on this single view study. Cardiomegaly. Prominent right mid and upper mediastinal border, possibly related to the low lung volumes, but not well assessed on radiography. Degenerative osseous changes and calcific tendinopathy Dictated by: Adair Mcgee M.D. on 02/28/2025 at 15:16 Approved by: Adair Mcgee M.D. on 02/28/2025 at 15:18
--- NOTE | 2025-02-28 14:54 | DI.RAD.S_ITS ---
PROCEDURE: XR KNEE LT 3V INDICATIONS: postop pain TECHNIQUE: 3 views of the knee were acquired. COMPARISON: [facility], CR, XR KNEE LT 1TO2V, 02/26/2025, 17:09. FINDINGS: Bones: Expected recent postoperative appearance of total left knee arthroplasty. No evidence of hardware failure or loosening. No fractures or dislocations. No suspicious bony lesions. Soft tissues: No joint effusion. No suspicious soft tissue calcifications. IMPRESSION: Expected findings, status post recent total left knee arthroplasty. Dictated by: Rui Begum M.D. on 02/28/2025 at 15:57 Approved by: Rui Begum M.D. on 02/28/2025 at 15:59
[2025-02-28 15:10] LABS: Add Manual Diff / Slide Review NO; Basophils Absolute Auto 0 /uL (0-100); Basophils Percent Auto 0.1 % (0-2); Eosinophils Absolute Auto 0 /uL (0-450); Hematocrit 33.9 % (36-46); Hemoglobin 11.8 g/dL (12.0-16.0); Lymphocytes Absolute Auto 700 /uL (1100-4500); Lymphocytes Percent Auto 4.9 % (25-40); Mean Corpuscular HGB Conc 34.9 % (30-36); Mean Corpuscular Hemoglobin 29.8 PG (26-34); Mean Corpuscular Volume 85.4 fL (80-100); Monocytes Absolute Auto 2700 /uL (0-900); Monocytes Percent Auto 18.8 % (3-14); Neutrophils Absolute Auto 11100 /uL (1500-7000); Neutrophils Percent Auto 76.2 % (50-75); Platelet Count 227 X10^3/uL (150-400); Red Blood Cell Count 3.97 X10^6/uL (4.0-5.2); Red Cell Distribution Width 12.5 % (11.6-14.8); White Blood Cell Count 14.6 X10^3/uL (4.5-11.0)
[2025-02-28] MEDS: METOCLOPRAMIDE 10 MG/2 ML INJ 5 MG IV (15:11)
[2025-02-28] MEDS: SODIUM CHLORIDE 0.9% 1,000 ML 1000 ML IV (15:13)
--- NOTE | 2025-02-28 15:17 | ED_ITS ---
HPI - Extremity Problem <Thelma Guevara PA-C - Last Filed: 02/28/25 19:57> General Chief complaint: Extremity Problem,Nontraumatic Stated complaint: Left knee surgery, sent by for poss blood clot Time Seen by Provider: 02/28/25 14:36 Source: patient Mode of arrival: Wheelchair History of Present Illness HPI Narrative: Ms. Perez is a very pleasant 85-year-old female with a past medical history of hypertension, hyperlipidemia, left total knee arthroplasty 02/26/[address] Zabala who presents to the emergency department for nausea, vomiting, chills, left knee pain and leg swelling. Patient was discharged yesterday (Tue) surgery was Tuesday. Patient states that when she got home she took oxycodone for pain and then later on took Zofran and reports that after taking the Zofran she started feeling completely ill including shaking chills, persistent vomiting all night long. Her left leg is now more swollen and she is unable to walk on it. She has not been able to eat or drink all night long. She called her surgeon who recommended coming to the emergency department for ultrasound of her leg. Patient denies chest pain, shortness of breath, cough, fevers but admits to nausea, vomiting, left leg pain and swelling. She has not had a bowel movement since Tuesday and is passing minimal gas. Prescription medications include atenolol, alprazolam at night. Her primary care doctor is Pal Valles in [facility]. Related Data Home Medications Medication Instructions Recorded Confirmed acetaminophen 500 mg tablet 1,000 mg PO TID 02/19/25 02/28/25 atenolol 25 mg tablet 25 mg PO BEDTIME 02/19/25 02/28/25 famotidine 20 mg tablet 20 mg PO BEDTIME 02/19/25 02/28/25 loratadine 10 mg tablet (Claritin) 10 mg PO BEDTIME PRN Seasonal 02/19/25 02/28/25 allergies alprazolam 0.5 mg tablet 0.5 mg PO BEDTIME 02/28/25 02/28/25 Allergies Allergy/AdvReac Type Severity Reaction Status Date / Time Sulfa (Sulfonamide Allergy Severe Facial Verified 02/28/25 13:22 Antibiotics) swelling adhesive Allergy Intermediate Rash Verified 02/28/25 13:22 erythromycin base AdvReac Severe Gastrointestinal Verified 02/28/25 13:22 Upset ibuprofen AdvReac Severe Gastrointestinal Verified 02/28/25 13:22 Upset, pain Almost all Narcotics AdvReac Severe Nausea, Uncoded 02/26/25 12:14 vomiting Review of Systems <Thelma Guevara PA-C - Last Filed: 02/28/25 19:57> Review of Systems ROS Unobtainable: All systems reviewed & are unremarkable except as noted in HPI and below Patient History <Thelma Guevara PA-C - Last Filed: 02/28/25 19:57> Medical History Vertigo Anesthesia complication PONV (postoperative nausea and vomiting) Skin cancer Osteoarthritis Impaired fasting glucose Sleep apnea Asthma Ringing in ears Panic attacks HTN (hypertension) HLD (hyperlipidemia) GERD (gastroesophageal reflux disease) Fibromyalgia Chronic sinusitis Anxiety Anemia Carotid artery disease Surgical History History of surgery Status post trigger finger release Hx of toe surgery (12/23/23) Hx of arthroscopy of left knee Hx of arthroscopy of right knee Hx of tonsillectomy History of esophagogastroduodenoscopy (EGD) Hx of colonoscopy History of hysterectomy Hx of dilation and curettage History of left-sided carotid endarterectomy (2012) History of right-sided carotid endarterectomy (~2007) Hx of sinus surgery Hx of bilateral cataract extraction Social History household members: spouse Smoking Status: Never smoker alcohol intake: former Smoking Status: Never smoker Exam <Thelma Guevara PA-C - Last Filed: 02/28/25 19:57> Narrative Exam Narrative: GENERAL: 85 year old patient appears stated age. Well-developed patient, in no acute distress. HEAD: Atraumatic. Normocephalic. ENT: Nose without bleeding, purulent drainage. NECK: Trachea midline. Cervical ROM intact. CARDIOVASCULAR: Regular rate and rhythm. RESPIRATORY: Nonlabored respirations. Speaking in clear, full sentences. Clear to auscultation GASTROINTESTINAL: Abdomen soft, non-tender, nondistended. Bowel sounds present. Subjective pain in bilateral lower groin. EXTREMITIES: Left leg edematous with ecchymosis on the left anterior farias and around the knee. Patient has large medial left knee surgical dressing in place. Sensation intact to light touch on bilateral lower feet and capillary refill intact. Limited range of motion of left knee secondary to pain. Left leg has some residual Betadine but no overt erythema, no streaking erythema. Right DP pulse palpable and left DP pulse detected with Doppler. NEURO: AOx3. Clear speech. No facial asymmetry. Initial Vital Signs Initial Vital Signs: Vital Signs Temperature 97.5 F L 02/28/25 13:17 Pulse Rate 70 02/28/25 13:17 Respiratory Rate 18 02/28/25 13:17 Blood Pressure 189/77 H 02/28/25 13:17 Pulse Oximetry 97 02/28/25 13:17 Oxygen Delivery Method Room Air 02/28/25 13:17 <Jerilyn Hernandez MD - Last Filed: 03/03/25 05:38> Initial Vital Signs Initial Vital Signs: Vital Signs Temperature 97.5 F L 02/28/25 13:17 Pulse Rate 70 02/28/25 13:17 Respiratory Rate 18 02/28/25 13:17 Blood Pressure 189/77 H 02/28/25 13:17 Pulse Oximetry 97 02/28/25 13:17 Oxygen Delivery Method Room Air 02/28/25 13:17 Course <Thelma Guevara PA-C - Last Filed: 02/28/25 19:57> Orders Ordered: Discontinued Medications Acetaminophen (Acetaminophen 325 Mg Tablet) 650 mg PO NOW ONE Stop: 02/28/25 16:07 Last Admin: 02/28/25 17:09 Dose: 650 mg Documented By: RB Acetaminophen (Acetaminophen 325 Mg Tablet) 650 mg PO Q6H PRN PRN Reason: Fever/Mild Pain (1-3) Last Admin: 03/02/25 06:34 Dose: 650 mg Documented By: Admin: 03/02/25 01:04 Dose: 650 mg Documented By: Admin: 03/01/25 11:59 Dose: 650 mg Documented By: BT Hydrocodone Bitart/Acetaminophen (Hydrocodone/Acet 5/325 Tablet) 1 tab PO Q4H PRN PRN Reason: Pain, Moderate (4-6) Last Admin: 02/28/25 21:08 Dose: 1 tab Documented By: VH Alprazolam (Alprazolam 0.25 Mg Tablet) 0.5 mg PO BEDTIME [facility] Last Admin: 03/02/25 01:58 Dose: 0.5 mg Documented By: Admin: 03/01/25 20:27 Dose: Not Given Documented By: Admin: 02/28/25 23:35 Dose: 0.5 mg Documented By: KATINA Amoxicillin/Clavulanate Potassium (Amoxicillin/Clav 875/125 Mg) 1 tab PO BID [facility] Last Admin: 03/02/25 09:23 Dose: 1 tab Documented By: Admin: 03/01/25 20:27 Dose: 1 tab Documented By: JABARI Atenolol (Atenolol 25 Mg Tablet) 25 mg PO BEDTIME [facility] Last Admin: 03/01/25 20:26 Dose: 25 mg Documented By: Admin: 02/28/25 23:35 Dose: 25 mg Documented By: KATINA Bisacodyl (Bisacodyl 5 Mg Tablet) 5 mg PO NOW ONE Stop: 03/01/25 08:24 Last Admin: 03/01/25 08:33 Dose: 5 mg Documented By: SHANE Bisacodyl (Bisacodyl 10 Mg Supp) 10 mg WV DAILY PRN PRN Reason: Constipation Last Admin: 03/01/25 16:44 Dose: 10 mg Documented By: SHANE Famotidine (Famotidine 20 Mg Tablet) 20 mg PO BEDTIME [facility] Last Admin: 03/01/25 20:26 Dose: 20 mg Documented By: Admin: 02/28/25 23:35 Dose: 20 mg Documented By: KATINA Heparin Sodium (Porcine) (Heparin 5,000 Unit/Ml Vial) 5,000 unit SUBCUT BID [facility] Last Admin: 03/02/25 09:23 Dose: 5,000 unit Documented By: Admin: 03/01/25 20:26 Dose: 5,000 unit Documented By: Admin: 03/01/25 08:33 Dose: 5,000 unit Documented By: Admin: 02/28/25 21:09 Dose: 5,000 unit Documented By: INA Hydromorphone HCl (Hydromorphone 0.5 Mg Inj) 0.5 mg IV Q2H PRN PRN Reason: Pain, Severe (7-10) Sodium Chloride (Normal Saline 0.9%) 1,000 mls @ 1,000 mls/hr IV BOLUS ONE Stop: 02/28/25 15:53 Last Infusion: 02/28/25 16:38 Dose: Infused Documented By: Admin: 02/28/25 15:13 Dose: 1,000 mls/hr Documented By: RB Ceftriaxone Sodium 1,000 mg/ (Sodium Chloride) 100 mls @ 200 mls/hr IV NOW ONE Stop: 02/28/25 15:39 Last Infusion: 02/28/25 17:43 Dose: Infused Documented By: Admin: 02/28/25 17:13 Dose: 200 mls/hr Documented By: RB Magnesium Sulfate (Magnesium Sulfate) 2 gm in 50 mls @ 25 mls/hr IV NOW ONE Stop: 02/28/25 18:05 Last Infusion: 02/28/25 19:32 Dose: Infused Documented By: KEVIN Co-signed By: GALDINO Admin: 02/28/25 17:42 Dose: 25 mls/hr Documented By: SHARATH Co-signed By: [facility] Ceftriaxone Sodium 1,000 mg/ (Sodium Chloride) 100 mls @ 200 mls/hr IV NOW ONE Stop: 02/28/25 19:31 Last Infusion: 02/28/25 20:15 Dose: Infused Documented By: Admin: 02/28/25 19:39 Dose: 200 mls/hr Documented By: KEVIN Azithromycin 500 mg/ Dextrose 250 mls @ 250 mls/hr IV NOW ONE Stop: 02/28/25 19:31 Last Infusion: 02/28/25 20:43 Dose: 0 mls/hr Documented By: Admin: 02/28/25 20:16 Dose: 250 mls/hr Documented By: KEVIN Sodium Chloride (Normal Saline 0.9%) 1,000 mls @ 75 mls/hr IV CONT DYLAN Last Infusion: 03/02/25 01:05 Dose: 75 mls/hr Documented By: Admin: 03/02/25 01:05 Dose: 75 mls/hr Documented By: Infusion: 03/02/25 00:54 Dose: Infused Documented By: Admin: 03/01/25 11:34 Dose: 75 mls/hr Documented By: Infusion: 03/01/25 11:32 Dose: Infused Documented By: Admin: 02/28/25 22:12 Dose: 75 mls/hr Documented By: KATINA Ceftriaxone Sodium 2,000 mg/ (Sodium Chloride) 100 mls @ 200 mls/hr IV Q24H [facility] Azithromycin 500 mg/ Dextrose 250 mls @ 250 mls/hr IV Q24H [facility] Last Admin: 03/01/25 17:31 Dose: 250 mls/hr Documented By: BT Lactulose (Lactulose 20 Gm/30 Ml Solution) 20 gm PO BID [facility] Last Admin: 03/01/25 20:27 Dose: 20 gm Documented By: MP Loratadine (Loratadine 10 Mg Tablet) 10 mg PO BEDTIME PRN PRN Reason: Seasonal allergies Magnesium Hydroxide (Magnesium Hydroxide 30 Ml Udc) 30 ml PO DAILY PRN PRN Reason: Constipation Last Admin: 02/28/25 21:09 Dose: 30 ml Documented By: VH Metoclopramide HCl (Metoclopramide 10 Mg/2 Ml Inj) 5 mg IV NOW ONE Stop: 02/28/25 14:55 Last Admin: 02/28/25 15:11 Dose: 5 mg Documented By: RB Naloxone HCl (Naloxone 0.4 Mg/Ml Vial) 0.2 mg IV Q2MIN PRN PRN Reason: Opiate Reversal Ondansetron HCl (Ondansetron 4 Mg/2 Ml Inj) 4 mg IV Q8HR PRN PRN Reason: Nausea And Vomiting Last Admin: 02/28/25 21:12 Dose: 4 mg Documented By: INA Polyethylene Glycol (Polyethylene Glycol 3350 17 Gm Powd.Pack) 17 gm PO NOW ONE Stop: 03/01/25 08:24 Last Admin: 03/01/25 08:33 Dose: 17 gm Documented By: BT Potassium Chloride (Potassium Chloride 20 Meq Tab) 40 meq PO NOW ONE Stop: 03/02/25 09:31 Last Admin: 03/02/25 09:58 Dose: 40 meq Documented By: MM Sennosides (Sennosides 8.6 Mg Tablet) 17.2 mg PO BEDTIME [facility] Last Admin: 03/01/25 20:26 Dose: 17.2 mg Documented By: MP Vital Signs Vital signs: Vital Signs - 8 hr 02/28/25 13:17 02/28/25 14:59 02/28/25 15:40 Temperature 97.5 F L 97.7 F 99.4 F Pulse Rate 70 Pulse Rate [Left Brachial] Respiratory Rate 18 Blood Pressure 189/77 H Pulse Oximetry 97 Oxygen Delivery Method Room Air 02/28/25 17:17 02/28/25 18:01 02/28/25 19:00 Temperature Pulse Rate 84 78 78 Pulse Rate [Left Brachial] Respiratory Rate 18 18 21 Blood Pressure 191/82 H 196/73 H 185/77 H Pulse Oximetry 96 100 97 Oxygen Delivery Method Room Air Room Air Room Air 02/28/25 19:00 Temperature Pulse Rate Pulse Rate [Left Brachial] 78 Respiratory Rate Blood Pressure Pulse Oximetry Oxygen Delivery Method <Jerilyn Hernandez MD - Last Filed: 03/03/25 05:38> Orders Ordered: Discontinued Medications Acetaminophen (Acetaminophen 325 Mg Tablet) 650 mg PO NOW ONE Stop: 02/28/25 16:07 Last Admin: 02/28/25 17:09 Dose: 650 mg Documented By: RB Acetaminophen (Acetaminophen 325 Mg Tablet) 650 mg PO Q6H PRN PRN Reason: Fever/Mild Pain (1-3) Last Admin: 03/02/25 06:34 Dose: 650 mg Documented By: Admin: 03/02/25 01:04 Dose: 650 mg Documented By: Admin: 03/01/25 11:59 Dose: 650 mg Documented By: BT Hydrocodone Bitart/Acetaminophen (Hydrocodone/Acet 5/325 Tablet) 1 tab PO Q4H PRN PRN Reason: Pain, Moderate (4-6) Last Admin: 02/28/25 21:08 Dose: 1 tab Documented By: INA Alprazolam (Alprazolam 0.25 Mg Tablet) 0.5 mg PO BEDTIME [facility] Last Admin: 03/02/25 01:58 Dose: 0.5 mg Documented By: Admin: 03/01/25 20:27 Dose: Not Given Documented By: Admin: 02/28/25 23:35 Dose: 0.5 mg Documented By: KATINA Amoxicillin/Clavulanate Potassium (Amoxicillin/Clav 875/125 Mg) 1 tab PO BID [facility] Last Admin: 03/02/25 09:23 Dose: 1 tab Documented By: Admin: 03/01/25 20:27 Dose: 1 tab Documented By: JABARI Atenolol (Atenolol 25 Mg Tablet) 25 mg PO BEDTIME [facility] Last Admin: 03/01/25 20:26 Dose: 25 mg Documented By: Admin: 02/28/25 23:35 Dose: 25 mg Documented By: KATINA Bisacodyl (Bisacodyl 5 Mg Tablet) 5 mg PO NOW ONE Stop: 03/01/25 08:24 Last Admin: 03/01/25 08:33 Dose: 5 mg Documented By: BT Bisacodyl (Bisacodyl 10 Mg Supp) 10 mg [place] DAILY PRN PRN Reason: Constipation Last Admin: 03/01/25 16:44 Dose: 10 mg Documented By: BT Famotidine (Famotidine 20 Mg Tablet) 20 mg PO BEDTIME [facility] Last Admin: 03/01/25 20:26 Dose: 20 mg Documented By: Admin: 02/28/25 23:35 Dose: 20 mg Documented By: KATINA Heparin Sodium (Porcine) (Heparin 5,000 Unit/Ml Vial) 5,000 unit SUBCUT BID [facility] Last Admin: 03/02/25 09:23 Dose: 5,000 unit Documented By: Admin: 03/01/25 20:26 Dose: 5,000 unit Documented By: Admin: 03/01/25 08:33 Dose: 5,000 unit Documented By: Admin: 02/28/25 21:09 Dose: 5,000 unit Documented By: INA Hydromorphone HCl (Hydromorphone 0.5 Mg Inj) 0.5 mg IV Q2H PRN PRN Reason: Pain, Severe (7-10) Sodium Chloride (Normal Saline 0.9%) 1,000 mls @ 1,000 mls/hr IV BOLUS ONE Stop: 02/28/25 15:53 Last Infusion: 02/28/25 16:38 Dose: Infused Documented By: Admin: 02/28/25 15:13 Dose: 1,000 mls/hr Documented By: RB Ceftriaxone Sodium 1,000 mg/ (Sodium Chloride) 100 mls @ 200 mls/hr IV NOW ONE Stop: 02/28/25 15:39 Last Infusion: 02/28/25 17:43 Dose: Infused Documented By: Admin: 02/28/25 17:13 Dose: 200 mls/hr Documented By: RB Magnesium Sulfate (Magnesium Sulfate) 2 gm in 50 mls @ 25 mls/hr IV NOW ONE Stop: 02/28/25 18:05 Last Infusion: 02/28/25 19:32 Dose: Infused Documented By: KEVIN Co-signed By: GALDINO Admin: 02/28/25 17:42 Dose: 25 mls/hr Documented By: RB Co-signed By: Nikhil Ceftriaxone Sodium 1,000 mg/ (Sodium Chloride) 100 mls @ 200 mls/hr IV NOW ONE Stop: 02/28/25 19:31 Last Infusion: 02/28/25 20:15 Dose: Infused Documented By: Admin: 02/28/25 19:39 Dose: 200 mls/hr Documented By: KEVIN Azithromycin 500 mg/ Dextrose 250 mls @ 250 mls/hr IV NOW ONE Stop: 02/28/25 19:31 Last Infusion: 02/28/25 20:43 Dose: 0 mls/hr Documented By: Admin: 02/28/25 20:16 Dose: 250 mls/hr Documented By: KEVIN Sodium Chloride (Normal Saline 0.9%) 1,000 mls @ 75 mls/hr IV CONT DYLAN Last Infusion: 03/02/25 01:05 Dose: 75 mls/hr Documented By: Admin: 03/02/25 01:05 Dose: 75 mls/hr Documented By: Infusion: 03/02/25 00:54 Dose: Infused Documented By: Admin: 03/01/25 11:34 Dose: 75 mls/hr Documented By: Infusion: 03/01/25 11:32 Dose: Infused Documented By: Admin: 02/28/25 22:12 Dose: 75 mls/hr Documented By: KATINA Ceftriaxone Sodium 2,000 mg/ (Sodium Chloride) 100 mls @ 200 mls/hr IV Q24H DYLAN Azithromycin 500 mg/ Dextrose 250 mls @ 250 mls/hr IV Q24H DYLAN Last Admin: 03/01/25 17:31 Dose: 250 mls/hr Documented By: SHANE Lactulose (Lactulose 20 Gm/30 Ml Solution) 20 gm PO BID DYLAN Last Admin: 03/01/25 20:27 Dose: 20 gm Documented By: JABARI Loratadine (Loratadine 10 Mg Tablet) 10 mg PO BEDTIME PRN PRN Reason: Seasonal allergies Magnesium Hydroxide (Magnesium Hydroxide 30 Ml Udc) 30 ml PO DAILY PRN PRN Reason: Constipation Last Admin: 02/28/25 21:09 Dose: 30 ml Documented By: INA Metoclopramide HCl (Metoclopramide 10 Mg/2 Ml Inj) 5 mg IV NOW ONE Stop: 02/28/25 14:55 Last Admin: 02/28/25 15:11 Dose: 5 mg Documented By: RB Naloxone HCl (Naloxone 0.4 Mg/Ml Vial) 0.2 mg IV Q2MIN PRN PRN Reason: Opiate Reversal Ondansetron HCl (Ondansetron 4 Mg/2 Ml Inj) 4 mg IV Q8HR PRN PRN Reason: Nausea And Vomiting Last Admin: 02/28/25 21:12 Dose: 4 mg Documented By: VH Polyethylene Glycol (Polyethylene Glycol 3350 17 Gm Powd.Pack) 17 gm PO NOW ONE Stop: 03/01/25 08:24 Last Admin: 03/01/25 08:33 Dose: 17 gm Documented By: BT Potassium Chloride (Potassium Chloride 20 Meq Tab) 40 meq PO NOW ONE Stop: 03/02/25 09:31 Last Admin: 03/02/25 09:58 Dose: 40 meq Documented By: MM Sennosides (Sennosides 8.6 Mg Tablet) 17.2 mg PO BEDTIME DYLAN Last Admin: 03/01/25 20:26 Dose: 17.2 mg Documented By: MP Vital Signs Vital signs: Vital Signs - 8 hr 02/28/25 13:17 02/28/25 14:59 02/28/25 15:40 Temperature 97.5 F L 97.7 F 99.4 F Pulse Rate 70 Pulse Rate [Left Brachial] Respiratory Rate 18 Blood Pressure 189/77 H Pulse Oximetry 97 Oxygen Delivery Method Room Air 02/28/25 17:17 02/28/25 18:01 02/28/25 19:00 Temperature Pulse Rate 84 78 78 Pulse Rate [Left Brachial] Respiratory Rate 18 18 21 Blood Pressure 191/82 H 196/73 H 185/77 H Pulse Oximetry 96 100 97 Oxygen Delivery Method Room Air Room Air Room Air 02/28/25 19:00 Temperature Pulse Rate Pulse Rate [Left Brachial] 78 Respiratory Rate Blood Pressure Pulse Oximetry Oxygen Delivery Method MDM - Extremity (Nontraumatic) <Thelma Guevara PA-C - Last Filed: 02/28/25 19:57> Medical Records Attestation: I reviewed the patient's medical records. Lab Data 03/02/25 08:00 03/02/25 08:00 Labs: Lab Results 05/29/25 05/29/25 05/29/25 Range/Units 14:52 16:13 18:11 WBC 14.6 H (4.5-11.0) X10^3/uL RBC 3.97 L (4.0-5.2) X10^6/uL Hgb 11.8 L (12.0-16.0) g/dL Hct 33.9 L (36-46) % MCV 85.4 (80-100) fL MCH 29.8 (26-34) PG MCHC 34.9 (30-36) % RDW 12.5 (11.6-14.8) % Plt Count 227 (150-400) X10^3/uL Neut % (Auto) 76.2 H (50-75) % Lymph % (Auto) 4.9 L (25-40) % Tate % (Auto) 18.8 H (3-14) % Eos % (Auto) 0.0 L (2-4) % Baso % (Auto) 0.1 (0-2) % Neut # (Auto) 11971 H (3977-2669) /uL Lymph # (Auto) 700 L (4202-2546) /uL Tate # (Auto) 2700 H (0-900) /uL Eos # (Auto) 0 (0-450) /uL Baso # (Auto) 0 (0-100) /uL ESR 18 (0-20) MM/HR Sodium 123 L 125 L (137-145) mmol/L Potassium 3.9 3.8 (3.4-5.1) mmol/L Chloride 87 L 91 L (98-107) mmol/L Carbon Dioxide 26 26 (22-32) mmol/L BUN 15 13 (7-17) mg/dL Creatinine 0.60 0.53 (0.52-1.04) mg/dL Estimated GFR > 60 > 60 (>60) mL/min BUN/Creatinine Ratio 25.0 H 24.5 H (6-22) Glucose 129 H 121 H (70-99) mg/dL Lactate 1.4 (0.7-2.1) mmol/L Calcium 9.0 8.6 (8.4-10.2) mg/dL Magnesium 1.4 L (1.6-2.3) mg/dL Total Bilirubin 1.1 (0.2-1.3) mg/dL AST 42 H (14-36) IU/L ALT 15 (<35) IU/L Alkaline Phosphatase 80 (38-126) U/L Ammonia (9-30) umol/L Total Creatine Kinase 202 H (30-135) U/L Troponin I < 0.012 (0.01-0.034) ng/mL C-Reactive Protein 6.0 H (<1.0) mg/dL Total Protein 7.3 (6.3-8.2) g/dL Albumin 4.5 (3.5-5.0) g/dL Globulin 2.8 (1.7-4.1) g/dL Albumin/Globulin Ratio 1.6 (1.0-2.8) Lipase 44 (23-300) U/L Procalcitonin 0.067 (<0.5) ng/mL Urine Color Yellow Urine Appearance Clear Urine pH 7.5 (4.5-8.0) Ur Specific Roxana 1.015 (1.000-1.035) Urine Protein Negative (Negative) Urine Glucose (UA) Negative (Negative) g/dL Urine Ketones Trace H (NEGATIVE) Urine Occult Blood Trace-intact (Negative) Urine Nitrate Negative (Negative) Urine Bilirubin Negative (NEGATIVE) Urine Urobilinogen 0.2 (0.2) E.U./dL Ur Leukocyte Esterase Negative (NEGATIVE) Urine RBC 1-5/hpf (0-5/HPF) Urine WBC 0-1/hpf (0-5/HPF) Ur Squamous Epith Cells 0-1 /hpf (0-5/HPF) Urine Bacteria Occasional (0-1) (None) Ur Culture Indicated? Cult not indicated Vol Urine Centrifuged 10ml (spun) 03/01/25 03/01/25 Range/Units 02:57 06:24 WBC 10.0 (4.5-11.0) X10^3/uL RBC 3.56 L (4.0-5.2) X10^6/uL Hgb 10.7 L (12.0-16.0) g/dL Hct 30.4 L (36-46) % MCV 85.5 (80-100) fL MCH 30.1 (26-34) PG MCHC 35.3 (30-36) % RDW 12.9 (11.6-14.8) % Plt Count 186 (150-400) X10^3/uL Neut % (Auto) 70.4 (50-75) % Lymph % (Auto) 7.8 L (25-40) % Tate % (Auto) 21.7 H (3-14) % Eos % (Auto) 0.0 L (2-4) % Baso % (Auto) 0.1 (0-2) % Neut # (Auto) 7000 (5841-8575) /uL Lymph # (Auto) 800 L (0708-7041) /uL Tate # (Auto) 2200 H (0-900) /uL Eos # (Auto) 0 (0-450) /uL Baso # (Auto) 0 (0-100) /uL ESR (0-20) MM/HR Sodium 130 L (137-145) mmol/L Potassium 3.7 (3.4-5.1) mmol/L Chloride 99 (98-107) mmol/L Carbon Dioxide 27 (22-32) mmol/L BUN 11 (7-17) mg/dL Creatinine 0.62 (0.52-1.04) mg/dL Estimated GFR > 60 (>60) mL/min BUN/Creatinine Ratio 17.7 (6-22) Glucose 116 H (70-99) mg/dL Lactate (0.7-2.1) mmol/L Calcium 8.5 (8.4-10.2) mg/dL Magnesium (1.6-2.3) mg/dL Total Bilirubin 0.7 (0.2-1.3) mg/dL AST 35 (14-36) IU/L ALT 14 (<35) IU/L Alkaline Phosphatase 66 (38-126) U/L Ammonia < 9 L (9-30) umol/L Total Creatine Kinase (30-135) U/L Troponin I (0.01-0.034) ng/mL C-Reactive Protein (<1.0) mg/dL Total Protein 6.2 L (6.3-8.2) g/dL Albumin 3.5 (3.5-5.0) g/dL Globulin 2.7 (1.7-4.1) g/dL Albumin/Globulin Ratio 1.3 (1.0-2.8) Lipase (23-300) U/L Procalcitonin (<0.5) ng/mL Urine Color Urine Appearance Urine pH (4.5-8.0) Ur Specific Roxana (1.000-1.035) Urine Protein (Negative) Urine Glucose (UA) (Negative) g/dL Urine Ketones (NEGATIVE) Urine Occult Blood (Negative) Urine Nitrate (Negative) Urine Bilirubin (NEGATIVE) Urine Urobilinogen (0.2) E.U./dL Ur Leukocyte Esterase (NEGATIVE) Urine RBC (0-5/HPF) Urine WBC (0-5/HPF) Ur Squamous Epith Cells (0-5/HPF) Urine Bacteria (None) Ur Culture Indicated? Vol Urine Centrifuged MDM Narrative Medical decision making narrative: 85-year-old female with a past medical history of hypertension, hyperlipidemia, Left total knee arthroplasty 02/26/[address] Zabala who presents to the emergency department for nausea, vomiting, chills, left knee pain and swelling. Differential diagnosis includes but is not limited to medication adverse reaction, postoperative pain, DVT, cellulitis, pneumonia, electrolyte abnormality, gastroenteritis, UTI, SBO, postoperative ileus etc. On exam patient is in no acute distress, she is visibly uncomfortable and feeling nauseous, holding emesis bag. Left lower extremity is edematous with significant ecchymosis and pain with range of motion, surgery was only 2 days ago. We will obtain labs including blood cultures, chest x-ray, knee x-ray, left lower extremity ultrasound. We will also obtain CT abdomen and pelvis with IV contrast given patient's constipation, vomiting, she is also reporting now some bilateral lower groin pain. Discussed case with the patient's orthopedic surgeon Dr. Zabala, informed of negative ultrasound for lower extremity deep venous thrombosis. She recommends patient be admitted to observation, she actually wanted the patient to stay in the hospital longer but patient wanted to go home early. She recommends admission to Medicine for patient's nausea and vomiting and she will consult on the patient. Labs reveal elevated WBC count of 14.6, stable hemoglobin of 11.8. Sodium is decreased at 123, potassium is normal at 3.9, magnesium is decreased at 1.4 and chloride is decreased at 87. Normal BUN 15 and creatinine 0.60. normal lactate 1.4. Total creatinine kinase slightly elevated at 202, negative troponin. CRP is elevated at 6.0. Normal lipase. Negative procalcitonin. Urine reveals trace ketones, not indicative of infection. Left lower extremity venous ultrasound reveals no findings of DVT Chest x-ray reveals diffusely prominent interstitium, possibly edema versus atypical infection. No dense consolidation on this single view study. Left knee x-ray reveals expected findings status post recent total left knee arthroplasty. We will replete magnesium. We will treat empirically with Rocephin given concern for possible infection given chills, elevated WBC count, somewhat atypical chest x-ray. Abdomen pelvis CT reveals large fecal load, no acute abdominal process. At this time, patient will benefit from admission for further monitoring, evaluation by Orthopedic surgery, and repletion of electrolytes. She will likely benefit from PT/OT as well given her recent left knee surgery. 6:08pm: Spoke with hospitalist Dr. Pedro, at this time he would like repeat BMP, if sodium <125 he will admit, if sodium >125 he would prefer ortho to admit or pt be discharged home. 7pm: Repeat BMP reveals slight improvement however sodium still 125, chloride 91. due to shift change, patient will need to be admitted by nighttime hospitalist. She will be moved to the main emergency department. She is aware and agreeable to transfer of care. I did speak with orthopedic surgeon Dr. Zabala, she has been updated on all the patient's results, suggest patient would benefit from a bowel regimen during admission / Suppository. Patient is feeling much better at this time. 7:30pm: Dr. Kimball [place]. He would like pt to receive additional 1g rocephin plus azithro. <Jerilyn Hernandez MD - Last Filed: 03/03/25 05:38> Lab Data Labs: Lab Results 02/28/25 02/28/25 02/28/25 Range/Units 14:52 16:13 18:11 WBC 14.6 H (4.5-11.0) X10^3/uL RBC 3.97 L (4.0-5.2) X10^6/uL Hgb 11.8 L (12.0-16.0) g/dL Hct 33.9 L (36-46) % MCV 85.4 (80-100) fL MCH 29.8 (26-34) PG MCHC 34.9 (30-36) % RDW 12.5 (11.6-14.8) % Plt Count 227 (150-400) X10^3/uL Neut % (Auto) 76.2 H (50-75) % Lymph % (Auto) 4.9 L (25-40) % [place] % (Auto) 18.8 H (3-14) % Eos % (Auto) 0.0 L (2-4) % Baso % (Auto) 0.1 (0-2) % Neut # (Auto) 66722 H (6350-0893) /uL Lymph # (Auto) 700 L (7780-4960) /uL [place] # (Auto) 2700 H (0-900) /uL Eos # (Auto) 0 (0-450) /uL Baso # (Auto) 0 (0-100) /uL ESR 18 (0-20) MM/HR Sodium 123 L 125 L (137-145) mmol/L Potassium 3.9 3.8 (3.4-5.1) mmol/L Chloride 87 L 91 L (98-107) mmol/L Carbon Dioxide 26 26 (22-32) mmol/L BUN 15 13 (7-17) mg/dL Creatinine 0.60 0.53 (0.52-1.04) mg/dL Estimated GFR > 60 > 60 (>60) mL/min BUN/Creatinine Ratio 25.0 H 24.5 H (6-22) Glucose 129 H 121 H (70-99) mg/dL Lactate 1.4 (0.7-2.1) mmol/L Calcium 9.0 8.6 (8.4-10.2) mg/dL Magnesium 1.4 L (1.6-2.3) mg/dL Total Bilirubin 1.1 (0.2-1.3) mg/dL AST 42 H (14-36) IU/L ALT 15 (<35) IU/L Alkaline Phosphatase 80 (38-126) U/L Ammonia (9-30) umol/L Total Creatine Kinase 202 H (30-135) U/L Troponin I < 0.012 (0.01-0.034) ng/mL C-Reactive Protein 6.0 H (<1.0) mg/dL Total Protein 7.3 (6.3-8.2) g/dL Albumin 4.5 (3.5-5.0) g/dL Globulin 2.8 (1.7-4.1) g/dL Albumin/Globulin Ratio 1.6 (1.0-2.8) Lipase 44 (23-300) U/L Procalcitonin 0.067 (<0.5) ng/mL Urine Color Yellow Urine Appearance Clear Urine pH 7.5 (4.5-8.0) Ur Specific [place] 1.015 (1.000-1.035) Urine Protein Negative (Negative) Urine Glucose (UA) Negative (Negative) g/dL Urine Ketones Trace H (NEGATIVE) Urine Occult Blood Trace-intact (Negative) Urine Nitrate Negative (Negative) Urine Bilirubin Negative (NEGATIVE) Urine Urobilinogen 0.2 (0.2) E.U./dL Ur Leukocyte Esterase Negative (NEGATIVE) Urine RBC 1-5/hpf (0-5/HPF) Urine WBC 0-1/hpf (0-5/HPF) Ur Squamous Epith Cells 0-1 /hpf (0-5/HPF) Urine Bacteria Occasional (0-1) (None) Ur Culture Indicated? Cult not indicated Vol Urine Centrifuged 10ml (spun) 03/01/25 03/01/25 Range/Units 02:57 06:24 WBC 10.0 (4.5-11.0) X10^3/uL RBC 3.56 L (4.0-5.2) X10^6/uL Hgb 10.7 L (12.0-16.0) g/dL Hct 30.4 L (36-46) % MCV 85.5 (80-100) fL MCH 30.1 (26-34) PG MCHC 35.3 (30-36) % RDW 12.9 (11.6-14.8) % Plt Count 186 (150-400) X10^3/uL Neut % (Auto) 70.4 (50-75) % Lymph % (Auto) 7.8 L (25-40) % [place] % (Auto) 21.7 H (3-14) % Eos % (Auto) 0.0 L (2-4) % Baso % (Auto) 0.1 (0-2) % Neut # (Auto) 7000 (0527-3202) /uL Lymph # (Auto) 800 L (9726-8056) /uL [place] # (Auto) 2200 H (0-900) /uL Eos # (Auto) 0 (0-450) /uL Baso # (Auto) 0 (0-100) /uL ESR (0-20) MM/HR Sodium 130 L (137-145) mmol/L Potassium 3.7 (3.4-5.1) mmol/L Chloride 99 (98-107) mmol/L Carbon Dioxide 27 (22-32) mmol/L BUN 11 (7-17) mg/dL Creatinine 0.62 (0.52-1.04) mg/dL Estimated GFR > 60 (>60) mL/min BUN/Creatinine Ratio 17.7 (6-22) Glucose 116 H (70-99) mg/dL Lactate (0.7-2.1) mmol/L Calcium 8.5 (8.4-10.2) mg/dL Magnesium (1.6-2.3) mg/dL Total Bilirubin 0.7 (0.2-1.3) mg/dL AST 35 (14-36) IU/L ALT 14 (<35) IU/L Alkaline Phosphatase 66 (38-126) U/L Ammonia < 9 L (9-30) umol/L Total Creatine Kinase (30-135) U/L Troponin I (0.01-0.034) ng/mL C-Reactive Protein (<1.0) mg/dL Total Protein 6.2 L (6.3-8.2) g/dL Albumin 3.5 (3.5-5.0) g/dL Globulin 2.7 (1.7-4.1) g/dL Albumin/Globulin Ratio 1.3 (1.0-2.8) Lipase (23-300) U/L Procalcitonin (<0.5) ng/mL Urine Color Urine Appearance Urine pH (4.5-8.0) Ur Specific [place] (1.000-1.035) Urine Protein (Negative) Urine Glucose (UA) (Negative) g/dL Urine Ketones (NEGATIVE) Urine Occult Blood (Negative) Urine Nitrate (Negative) Urine Bilirubin (NEGATIVE) Urine Urobilinogen (0.2) E.U./dL Ur Leukocyte Esterase (NEGATIVE) Urine RBC (0-5/HPF) Urine WBC (0-5/HPF) Ur Squamous Epith Cells (0-5/HPF) Urine Bacteria (None) Ur Culture Indicated? Vol Urine Centrifuged Discharge Plan Departure Patient Disposition: Admitted As Inpatient Clinical Impression: Hyponatremia, History of total left knee replacement (TKR) Nausea & vomiting Qualifiers: Vomiting type: unspecified Qualified Code(s): R11.2 - Nausea with vomiting, unspecified Constipation Qualifiers: Constipation type: unspecified constipation type Qualified Code(s): K59.00 - Constipation, unspecified Admit Date/Time: 03/01/25 12:20 Admit Provider: Jean Gutierrez ED Sign-out <Jerilyn Hernandez MD - Last Filed: 03/03/25 05:38> Cosign ED Attending Cosignature Attestation: I was immediately available in the department for consultation throughout this patient's visit. Jerilyn Hernandez MD
[2025-02-28 15:28] LABS: Lactate (Lactic Acid) 1.4 mmol/L (0.7-2.1)
[2025-02-28 15:29] LABS: Alanine Aminotransferase 15 IU/L (<35); Albumin 4.5 g/dL (3.5-5.0); Albumin Globulin Ratio 1.6 (1.0-2.8); Alkaline Phosphatase 80 U/L (38-126); Aspartate Aminotransferase 42 IU/L (14-36); Bilirubin Total 1.1 mg/dL (0.2-1.3); Blood Urea Nitrogen 15 mg/dL (7-17); Carbon Dioxide 26 mmol/L (22-32); Chloride 87 mmol/L (98-107); Creatine Kinase 202 U/L (30-135); Estimated Glomerular Filt Rate > 60 mL/min (>60); Globulin 2.8 g/dL (1.7-4.1); Glucose 129 mg/dL (70-99); HEMOLYSIS < 15 (0-50); Lipase 44 U/L (23-300); Potassium 3.9 mmol/L (3.4-5.1); Sodium 123 mmol/L (137-145); Total Protein 7.3 g/dL (6.3-8.2)
--- NOTE | 2025-02-28 15:30 | EKG_ITS ---
[address] [address] Test Date: 2025-02-28 Pat Name: Billie Perez Department: [facility] Room: Gender: Female [employer]: JOHN : 1940 Requested By: Order Number: [id number] Reading MD: José Luis Pedro Measurements Intervals [place] Rate: 75 P: 63 [place]: 160 QRS: 52 QRSD: 78 T: 39 QT: 392 QTc: 437 Interpretive Statements Normal sinus rhythm Electronically Signed On 03-02-2025 16:23:09 PDT by José Luis Pedro
[2025-02-28 15:38] LABS: Erythrocyte Sedimentation Rate 18 MM/HR (0-20)
[2025-02-28 15:41] LABS: Troponin I < 0.012 ng/mL (0.01-0.034)
--- NOTE | 2025-02-28 15:43 | DI.CT.S_ITS ---
PROCEDURE: CT ABDOMEN PELVIS W CON INDICATIONS: N/V/constipation; recent L knee surg TECHNIQUE: After the administration of intravenous contrast, axial sections acquired from the lung bases to the pubic symphysis. Coronal and sagittal reformats were performed. For radiation dose reduction, the following was used: automated exposure control, adjustment of mA and/or kV according to patient size. COMPARISON: None. FINDINGS: Image quality: Diagnostic. Lower Chest: No significant findings. ABDOMEN: Liver: No solid mass. Gallbladder: No radiopaque gallstones or wall thickening. Biliary ducts: No biliary dilation. Pancreas: No ductal dilation. Spleen: Size is within normal limits. Adrenal Glands: No adrenal nodules. Kidneys and Ureters: No hydronephrosis. No solid mass. No complex renal cystic lesion which requires follow up. Stomach and Bowel: Normal colonic caliber, without significant wall thickening. Large fecal load. Peritoneum: No abnormal intraperitoneal fluid. No free air. Ventral Wall: No significant ventral hernia. Abdominal Nodes: No retroperitoneal or mesenteric adenopathy by size criteria. Vessels: Aorta and inferior vena cava are normal in size. PELVIS: Pelvic Organs: Uterus is surgically absent. No adnexal masses.. Bladder: No bladder wall thickening, accounting for underdistention. Pelvic Nodes: No enlarged lymph nodes. Miscellaneous: No inguinal hernias are seen. Bones: No aggressive osseous abnormality. Lumbar degenerative change. IMPRESSION: 1. Large fecal load. 2. No acute abdominal process. Dictated by: Rui Begum M.D. on 02/28/2025 at 17:08 Approved by: Rui Begum M.D. on 02/28/2025 at 17:10
[2025-02-28 15:46] LABS: Procalcitonin 0.067 ng/mL (<0.5)
[2025-02-28 16:01] LABS: Magnesium 1.4 mg/dL (1.6-2.3)
[2025-02-28 16:27] LABS: Appearance Urine UA CLEAR; Bilirubin Urine UA NEGATIVE (NEGATIVE); Color Urine UA YELLOW; Glucose Urine UA NEGATIVE (Negative); Ketones Urine UA TRACE (NEGATIVE); Leukocyte Esterase Urine UA NEGATIVE (NEGATIVE); Nitrite Urine UA NEGATIVE (Negative); Occult Blood Urine UA TRACE-INTACT (Negative); Protein Urine UA NEGATIVE (Negative); Specific Gravity Urine UA 1.015 (1.000-1.035); Urobilinogen Urine UA 0.2 E.U./dL (0.2)
[2025-02-28 16:28] LABS: pH Urine UA 7.5 (4.5-8.0)
[2025-02-28 16:38] LABS: Bacteria Urine Occasional (0-1); Culture Indicated Urine Cult Not Indicated; RBC Urine 1-5/HPF (0-5/HPF); Squamous Epithelial Cell Urine 0-1 /HPF (0-5/HPF); Urine Volume 10mL (spun); WBC Urine 0-1/HPF (0-5/HPF)
[2025-02-28] MEDS: ACETAMINOPHEN 325 MG TABLET 650 MG PO (17:09)
[2025-02-28] MEDS: cefTRIAXone 1,000 MG in SODIUM CHLORIDE 0.9% 100 ML 200 MG IV ×2 (17:13→19:39)
[2025-02-28] MEDS: MAGNESIUM SULFATE 2 GM/50 ML PIGGYBACK IV (17:42)
--- NOTE | 2025-02-28 18:08 | PM.CALLCOV.1 ---
Call Coverage Note Note Narrative of Care Provided: 85 F POD#2 s/p knee surgery who presented with L leg swelling, nausea, vomiting. Patient feels improved after initial treatments in the ER. Sodium 123, patient was given fluids. With regards to hyponatremia, recommend repeat evaluation after fluids. If she is asymptomatic, and sodium is trending upwards >125, patient could possibly discharge home as I am unsure as to the chronicity of her hyponatremia at this time. I have no prior lab evaluation available in her current or review of CareEverywhere nor when she was admitted during her recent knee surgery. PCP is Pal DE JESUS in [facility] with [facility], I see no recent labs there either. Imaging has been unremarkable thus far, only notable for constipation. Current recommendations: 1) repeat BMP. If sodium improving and >125 can reassess need for admission. If sodium is <125 recommend continuing IV fluids, implementing aggressive laxative therapies, and admission to medicine under inpatient status. Please also obtain urine sodium and osmolality for further evaluation of her hyponatremia. 2) patient appears to have been started on HCTZ as of a month ago (this was in PCP record and I see an outpatient prescription sent to [facility]). This should be stopped if the patient has not stopped it already. Perform thorough medication reconcilliation with patient as well to make sure our system is accurate.
[2025-02-28 18:29] LABS: BUN Creatinine Ratio 24.5 (6-22); Blood Urea Nitrogen 13 mg/dL (7-17); Calcium 8.6 mg/dL (8.4-10.2); Carbon Dioxide 26 mmol/L (22-32); Chloride 91 mmol/L (98-107); Estimated Glomerular Filt Rate > 60 mL/min (>60); Glucose 121 mg/dL (70-99); Potassium 3.8 mmol/L (3.4-5.1); Sodium 125 mmol/L (137-145)
[2025-02-28 18:31] LABS: HEMOLYSIS 61 (0-50)
--- NOTE | 2025-02-28 19:19 | PC.NURSE ---
This RN was present with all interactions with the student RN and the patient. This RN has reviewed documentation by the student and agree with their charted assessment.
[2025-02-28] MEDS: AZITHROMYCIN 500 MG in DEXTROSE 5% IN WATER 250 ML 250 MG IV (20:16)
[2025-02-28] MEDS: HYDROCODONE/ACET 5/325 TABLET 1 TAB PO (21:08)
[2025-02-28] MEDS: MAGNESIUM HYDROXIDE 30 ML UDC PO (21:09)
[2025-02-28] MEDS: HEPARIN 5,000 UNIT/ML VIAL 5000 UNIT SUBCUT (21:09)
[2025-02-28] MEDS: ONDANSETRON 4 MG/2 ML INJ IV (21:12)
--- NOTE | 2025-02-28 22:00 | PM.HP.1 ---
History of Present Illness History of Present Illness Chief complaint: Left knee surgery, sent by for poss blood clot Narrative: 85-year-old female past medical history of hyperlipidemia, hypertension, anxiety and recent left total knee arthroplasty on February 26, [address] Zabala presents with left knee pain and swelling. Per the patient report, the patient was discharged yesterday after her surgery of her left knee 2 days ago. The patient started to notice some left knee swelling and increasing pain after being home. The patient also had some nausea, vomiting with subjective fever and chills. Due to ongoing nausea and vomiting the patient has poor oral intake. The patient called Dr. Zabala and recommended to come into the ER for an ultrasound of her leg. The patient otherwise denies any abdominal pain, chest pain, diarrhea, dysuria or coughing. The patient reports that she has not had any bowel movement since Tuesday though she is able to passing some gas. In the emergency room, the patient was hemodynamically stable. WBC was 14,000 sodium 125 glucose 121 lactate was normal. UA was also negative. Chest x-ray does possible atypical pneumonia. Ultrasound of left lower leg shows no DVT. Dr. Zabala recommended admission to the hospital for pain control. The patient received IV ceftriaxone and IV azithromycin. [facility] Medical History Vertigo Anesthesia complication PONV (postoperative nausea and vomiting) Skin cancer Osteoarthritis Impaired fasting glucose Sleep apnea Asthma Ringing in ears Panic attacks HTN (hypertension) HLD (hyperlipidemia) GERD (gastroesophageal reflux disease) Fibromyalgia Chronic sinusitis Anxiety Anemia Carotid artery disease Surgical History History of surgery Status post trigger finger release Hx of toe surgery (12/23/23) Hx of arthroscopy of left knee Hx of arthroscopy of right knee Hx of tonsillectomy History of esophagogastroduodenoscopy (EGD) Hx of colonoscopy History of hysterectomy Hx of dilation and curettage History of left-sided carotid endarterectomy (2012) History of right-sided carotid endarterectomy (~2007) Hx of sinus surgery Hx of bilateral cataract extraction Social History household members: spouse Smoking Status: Never smoker alcohol intake: former Meds Home Medications and Allergies Home Medications Medication Instructions Recorded Confirmed Type acetaminophen 500 mg tablet 1,000 mg PO TID 02/19/25 02/28/25 History atenolol 25 mg tablet 25 mg PO BEDTIME 02/19/25 02/28/25 History famotidine 20 mg tablet 20 mg PO BEDTIME 02/19/25 02/28/25 History loratadine 10 mg tablet (Claritin) 10 mg PO BEDTIME PRN Seasonal 02/19/25 02/28/25 History allergies alprazolam 0.5 mg tablet 0.5 mg PO BEDTIME 02/28/25 02/28/25 History Allergies Allergy/AdvReac Type Severity Reaction Status Date / Time Sulfa (Sulfonamide Allergy Severe Facial Verified 02/28/25 13:22 Antibiotics) swelling adhesive Allergy Intermediate Rash Verified 02/28/25 13:22 erythromycin base AdvReac Severe Gastrointestinal Verified 02/28/25 13:22 Upset ibuprofen AdvReac Severe Gastrointestinal Verified 02/28/25 13:22 Upset, pain Almost all Narcotics AdvReac Severe Nausea, Uncoded 02/26/25 12:14 vomiting Review of Systems Review of Systems ROS: Yes All systems reviewed with the patient and are negative except as otherwise documented Exam Vital Signs (past 8 hours): - 02/28/25 14:59 02/28/25 15:40 02/28/25 17:17 Temperature 97.7 F 99.4 F Pulse Rate 84 Pulse Rate [Left Brachial] Respiratory Rate 18 Blood Pressure 191/82 H Pulse Oximetry 96 Oxygen Delivery Method Room Air 02/28/25 18:01 02/28/25 19:00 02/28/25 19:00 Temperature Pulse Rate 78 78 Pulse Rate [Left Brachial] 78 Respiratory Rate 18 21 Blood Pressure 196/73 H 185/77 H Pulse Oximetry 100 97 Oxygen Delivery Method Room Air Room Air 02/28/25 20:25 Temperature Pulse Rate 75 Pulse Rate [Left Brachial] Respiratory Rate 20 Blood Pressure 172/75 H Pulse Oximetry 94 Oxygen Delivery Method Oxygen Delivery Method Room Air Narrative Exam Narrative: Physical Exam: GENERAL: The patient is not in any acute distressed. Awake and alert. HEENT: Nonicteric sclerae, PERRLA, EOMI. Oropharynx clear. Moist mucous membranes. Conjunctivae appear well perfused. HEART: Regular rate and rhythm without murmurs. No lower extremities edema. LUNGS: Clear to auscultation bilaterally. No wheezing, crackles or rhonchi ABDOMEN: Soft, positive bowel sounds, nontender. SKIN: some left knee swelling with no drainage from surgical wound sites. No rash, no excessive bruising, petechiae, or purpura. NEUROLOGIC: AxO x 3. Cranial nerves II-XII intact without motor/sensory deficit. Objective Labs 02/28/25 14:52 02/28/25 18:11 Labs: Laboratory Results - last 24 hr 02/28/25 02/28/25 02/28/25 14:52 16:13 18:11 WBC 14.6 H RBC 3.97 L Hgb 11.8 L Hct 33.9 L MCV 85.4 MCH 29.8 MCHC 34.9 RDW 12.5 Plt Count 227 Neut % (Auto) 76.2 H Lymph % (Auto) 4.9 L [place] % (Auto) 18.8 H Eos % (Auto) 0.0 L Baso % (Auto) 0.1 Neut # (Auto) 66116 H Lymph # (Auto) 700 L [place] # (Auto) 2700 H Eos # (Auto) 0 Baso # (Auto) 0 ESR 18 Sodium 123 L 125 L Potassium 3.9 3.8 Chloride 87 L 91 L Carbon Dioxide 26 26 BUN 15 13 Creatinine 0.60 0.53 Estimated GFR > 60 > 60 BUN/Creatinine Ratio 25.0 H 24.5 H Glucose 129 H 121 H Lactate 1.4 Calcium 9.0 8.6 Magnesium 1.4 L Total Bilirubin 1.1 AST 42 H ALT 15 Alkaline Phosphatase 80 Total Creatine Kinase 202 H Troponin I < 0.012 C-Reactive Protein 6.0 H Total Protein 7.3 Albumin 4.5 Globulin 2.8 Albumin/Globulin Ratio 1.6 Lipase 44 Procalcitonin 0.067 Urine Color Yellow Urine Appearance Clear Urine pH 7.5 Ur Specific [place] 1.015 Urine Protein Negative Urine Glucose (UA) Negative Urine Ketones Trace H Urine Occult Blood Trace-intact Urine Nitrate Negative Urine Bilirubin Negative Urine Urobilinogen 0.2 Ur Leukocyte Esterase Negative Urine RBC 1-5/hpf Urine WBC 0-1/hpf Ur Squamous Epith Cells 0-1 /hpf Urine Bacteria Occasional (0-1) Ur Culture Indicated? Cult not indicated Vol Urine Centrifuged 10ml (spun) Assessment & Plan Assessment & Plan narrative: Possible atypical pneumonia. Admit the patient to medical telemetry as inpatient. Continue empiric antibiotic with azithromycin and ceftriaxone. Monitor for sepsis. Recent left knee arthroscopy. Clinically the patient does not have increasing erythema of the left knee or signs of wound infection. Ultrasound of left lower leg shows no DVT. Per orthopedic surgeon Dr. Zabala continue with pain control PT OT. Dr. Zabala will consult in the morning. Leukocytosis. Likely due to pneumonia. Monitor for sepsis and treat underlying infection. Hyponatremia. Mild sodium 125. Likely from dehydration. IVF with NS and monitor sodium for now. Dehydration. IV fluid. Mild hyperglycemia glucose 120s monitor glucose with subcu insulin as needed. Hypertension. Monitor blood pressure and resume home medication accordingly. DVT prophylaxis heparin subcu. CODE STATUS full code. Disposition likely home in 2 days. - As the provider of this telehealth evaluation, requested by the patient's evaluating physician, I attest that I introduced myself to the patient, provided my credentials and determined that telemedicine via a real-time, 2 way interactive audio and video platform is an appropriate and effective means of providing this service. - I reviewed the patient's chart and had a discussion with the member of the patient's treatment team. - The patient and I mutually agreed with continuation of this evaluation via telemedicine. The patient consented for the telemedicine evaluation. - This virtual encounter was taken place from [place] by Dr. Jean Gutierrez. The patient was evaluated at [facility]. The encounter was approximately 35 minutes. The nurse was present during the entire time of the encounter and was able to move the stethoscope in appropriate directions. Time-Based Coding :: [TOTAL MINUTES] spent with patient and on the chart (including review of chart, obtaining history, exam, reviewing outside data, placing orders, documenting exam and treatment plan, and counseling patient) on [DATE].
[2025-02-28] MEDS: SODIUM CHLORIDE 0.9% 1,000 ML 75 ML IV (22:12)
[2025-02-28] MEDS: FAMOTIDINE 20 MG TABLET PO (23:35)
[2025-02-28] MEDS: ALPRAZolam 0.25 MG TABLET 0.5 MG PO (23:35)
[2025-02-28] MEDS: atenoloL 25 MG TABLET PO (23:35)
--- NOTE | 2025-03-01 01:22 | PC.NURSE ---
fast food shift supervisor: Patient arrived from ED approximately 2100, ambulated from stretcher to bed w/ 2 PA & FWW. Reports moderate pain in left knee when moving, L- knee incision covered w/ aquacel is CDI. Denies numbness/tingling, CMS intact. Performing leg exercises in bed. Reports mild nausea w/o emesis, had small BM before bed. Patient reports constipation, medicated as ordered. Vital signs stable, SpO2 98% on RA. Denies SOB. MD Gutierrez spoke with patient via [employer] cart, patient verbalizes understanding of plan of care. Oriented to call-light, plan of care ongoing.
[2025-03-01 03:16] LABS: Ammonia (NH3) < 9 umol/L (9-30)
[2025-03-01 06:29] LABS: Add Manual Diff / Slide Review NO; Basophils Absolute Auto 0 /uL (0-100); Basophils Percent Auto 0.1 % (0-2); Eosinophils Absolute Auto 0 /uL (0-450); Hematocrit 30.4 % (36-46); Hemoglobin 10.7 g/dL (12.0-16.0); Lymphocytes Absolute Auto 800 /uL (1100-4500); Lymphocytes Percent Auto 7.8 % (25-40); Mean Corpuscular HGB Conc 35.3 % (30-36); Mean Corpuscular Hemoglobin 30.1 PG (26-34); Mean Corpuscular Volume 85.5 fL (80-100); Monocytes Absolute Auto 2200 /uL (0-900); Monocytes Percent Auto 21.7 % (3-14); Neutrophils Absolute Auto 7000 /uL (1500-7000); Neutrophils Percent Auto 70.4 % (50-75); Platelet Count 186 X10^3/uL (150-400); Red Blood Cell Count 3.56 X10^6/uL (4.0-5.2); Red Cell Distribution Width 12.9 % (11.6-14.8)
[2025-03-01 06:49] LABS: Alanine Aminotransferase 14 IU/L (<35); Albumin 3.5 g/dL (3.5-5.0); Albumin Globulin Ratio 1.3 (1.0-2.8); Alkaline Phosphatase 66 U/L (38-126); Aspartate Aminotransferase 35 IU/L (14-36); BUN Creatinine Ratio 17.7 (6-22); Bilirubin Total 0.7 mg/dL (0.2-1.3); Blood Urea Nitrogen 11 mg/dL (7-17); Calcium 8.5 mg/dL (8.4-10.2); Carbon Dioxide 27 mmol/L (22-32); Chloride 99 mmol/L (98-107); Estimated Glomerular Filt Rate > 60 mL/min (>60); Globulin 2.7 g/dL (1.7-4.1); Glucose 116 mg/dL (70-99); HEMOLYSIS < 15 (0-50); Potassium 3.7 mmol/L (3.4-5.1); Sodium 130 mmol/L (137-145); Total Protein 6.2 g/dL (6.3-8.2)
[2025-03-01 08:16] VITALS: BP 153/81; PULSE 74; RESP 16; TEMP 37.1; O2SAT 93
[2025-03-01] MEDS: HEPARIN 5,000 UNIT/ML VIAL 5000 UNIT SUBCUT ×2 (08:33→20:26)
[2025-03-01] MEDS: BISACODYL 5 MG TABLET PO (08:33)
[2025-03-01] MEDS: polyethylene glycoL 3350 17 GM POWD.PACK PO (08:33)
[2025-03-01] MEDS: SODIUM CHLORIDE 0.9% 1,000 ML 75 ML IV (11:34)
[2025-03-01] MEDS: ACETAMINOPHEN 325 MG TABLET 650 MG PO (11:59)
--- NOTE | 2025-03-01 13:57 | PT.IIE ---
Current Diagnoses Pneumonia, unspecified organism (03/01/25) Surgical History (Last Reviewed 02/28/25 @ 15:22 by Thelma Guevara PA-C) History of esophagogastroduodenoscopy (EGD) History of hysterectomy History of left-sided carotid endarterectomy (2012) History of right-sided carotid endarterectomy (~2007) History of surgery Hx of arthroscopy of left knee Hx of arthroscopy of right knee Hx of bilateral cataract extraction Hx of colonoscopy Hx of dilation and curettage Hx of sinus surgery Hx of toe surgery (12/23/23) Hx of tonsillectomy Status post trigger finger release Medical History (Last Reviewed 02/28/25 @ 15:22 by Thelma Guevara PA-C) Anemia Anesthesia complication Anxiety Asthma Carotid artery disease Chronic sinusitis Fibromyalgia GERD (gastroesophageal reflux disease) HLD (hyperlipidemia) HTN (hypertension) Impaired fasting glucose Osteoarthritis Panic attacks PONV (postoperative nausea and vomiting) Ringing in ears Skin cancer Sleep apnea Vertigo Physical Therapy Inpatient Evaluation/Re-Eval M1 PT/OT-IP Prior Functional Status Start: 03/01/25 14:57 Freq: NEEDED Status: Active Protocol: Document 03/01/25 13:57 AB (Rec: 03/01/25 15:15 AB [id number]) Medical Review Prior Functional Status Medical History Reviewed Yes Communication able to make needs known Mobility and Gait pt with recent L TKA 02/26/25 and went home 02/27/25. pt able to ambulate using 4WW with spouse assisting. Before L TKA, pt was independent with all mobilities and ambulation without AD Social History Household Members spouse Living Arrangements House Number of Floors (Floors) Two Floors Number of Stairs To Enter/Railing? pt stays on main level of the house Home Environment Standard Height Toilet,Walk in Shower Home Equipment Front Wheel Walker,Four Wheel Walker,Quad Cane,Straight Cane ,Manual Wheelchair,Shower Seat without Backrest,Hand Held Shower,Grab Bars In Shower Additional Social History Comment pt's spouse can assist but limited due to back issues FWW was ordered by spouse and should have arrived yesterday per pt. M2 PT-IP Current Condition Start: 03/01/25 14:57 Freq: NEEDED Status: Active Protocol: Document 03/01/25 13:57 AB (Rec: 03/01/25 15:15 AB [id number]) Physical Therapy Current Condition Current Condition Evaluation Date 03/01/25 Treatment Diagnosis hyponatremia; s/p L TKA; difficulty in walking Onset Date 03/01/25 M3 PT-IP Subjective Start: 03/01/25 14:57 Freq: NEEDED Status: Active Protocol: Document 03/01/25 13:57 AB (Rec: 03/01/25 15:15 AB [id number]) Subjective Physical Therapy Visit Type Type Initial Evaluation Visit Start Time 13:57 Visit Stop Time 14:53 Number of VOCATIONAL HORTICULTURE INSTRUCTOR Visits 0 Physical Therapy Visit Comments Patient Comments agreeable to do PT Therapy Pain Assessment Pain When Pain Assessed During Mobility Location Left Knee Intensity 4 Scale Used Numeric (0 - 10) Pain Behaviors Guarding,Wincing Pain Management Techniques Apply Cold,Distraction, Modification of Treatment,Re- positioning,Timing of Activity with Medications M4 PT-IP Mobility and Gait Start: 03/01/25 14:57 Freq: NEEDED Status: Active Protocol: Document 03/01/25 13:57 AB (Rec: 03/01/25 15:15 AB [id number]) PT-Bed Mobility Assessment Supine to Sit Supine to Sit Standby Assistance Sit to Supine Sit to Supine Standby Assistance PT-Transfer Assessment Sit to and From Stand Sit to and from Stand Contact Guard Assistance,1 Person Assistance,Use of Upper Extremities Equipment Transfer Assistive Device Gait Belt,Front Wheeled Walker Orthotic/Prosthetic Devices or Brace: No Transfers Transfer Destination Bed Transfer Technique ambulated Transfer Ability Level of Assist Contact Guard Assistance Comments Mobility Comments pt sitting on the chair and agreeable to do PT. obtained PLOF and home set up. pt was just here in the hospital for L TKA and is known to this PT. pt admitted for hyponatremia . pt also stated that she is constipated. encouraged pt to drink more fluids but stated that she cannot drink much due to feeling of fullness. offered ice chips and pt agreed. ice chips provided to pt. pt completed heel slides prior to getting up and able to bend knee ~ 70 degrees. noted LLE swelling. pt completed sit to stand CGA and ambulated to bedside commode using FWW CGA. presents with shuffling gait. pt requested for her shoes and assisted. Assisted pt with brief management. sit to stand from the commode CGA and was able to take a few steps using FWW to get to the sink. OT assisted pt for ADL needs. pt ambulated from EOB towards platform step using fWW CGA. pt completed up/down platform step using quad cane + TELEPHONE ORDER SUPERVISOR mod to max A and max cues. pt completed x 2. pt ambulated back to her room using fWW CGA ~ 25 ft and sat on EOB. completed sit<>supine SBA. required increase time to complete and pt use UE to assist LLE mobility. Left pt with OT. ice pack provided. Gait Assessment Gait Gait Assistance Required: Contact Guard Assist Distance (Feet) 25 Able to Maintain Weight Bearing Status Yes During Gait Assistive Devices Assistive Device Gait Belt,Front Wheeled Walker Orthotic/Prosthetic Devices or Brace: No Gait Deviations General Gait Pattern Decreased Stride Length, Decreased Feet Clearance Factors Limiting Gait Function Factors Limiting Gait Function Decreased Activity Tolerance, Decreased Strength,Difficulty Following Directions,Limited Range of Motion,Pain,Poor Balance,Poor Safety Awareness Stair Climbing Assessment Evaluation Level of Assist On Stairs Moderate Assistance,Maximal Assistance Devices Stair Climbing Assistive Devices Small Base Quad Cane Technique/Endurance Stair Climbing Direction Ascend and Descend Stair Climbing Technique Step to Step Number of Steps Climbed 1 Query Text: Stair Climbing Set # Repetitions (reps) 2 PT-Balance Assessment Sitting Balance and Reactions Static Sitting Balance Ability Normal Dynamic Sitting Balance Ability Good Standing Balance and Reactions Static Standing Balance Ability Fair Dynamic Standing Balance Ability Fair Device Used FWW M5 PT-IP Objective Assessments Start: 03/01/25 14:57 Freq: NEEDED Status: Active Protocol: Document 03/01/25 13:57 AB (Rec: 03/01/25 15:15 AB [id number]) Orientation Orientation/Cognition Level of Alertness Alert Orientation Name,Place,Situation Language Function Ability Hard of Hearing Safety Awareness Decreased Safety Awareness Memory Description No Deficits Noted Gross Range of Motion Lower Extremity ROM Impairments L knee flexion: ~ 70 deg Strength Lower Extremity Strength Assessment Left Impaired Knee 3+/5 Muscle Tone Muscle Tone WNL Yes M6 PT-IP Treatment Start: 03/01/25 14:57 Freq: NEEDED Status: Active Protocol: Document 03/01/25 13:57 AB (Rec: 03/01/25 15:15 AB [id number]) Physical Therapy Treatment Exercises Exercises Heel Slides Education Education Provided Safety M7 PT-IP Assessment and Plan Start: 03/01/25 14:57 Freq: NEEDED Status: Active Protocol: Document 03/01/25 13:57 AB (Rec: 03/01/25 15:15 AB [id number]) PT Summary Assessment and Plan Potential Rehabilitation Potential Fair Status of Condition at Evaluation Stable Summary Impairments Pain,ROM,Strength,Balance,Tone ,Cognition,Bed Mobility, Transfers,Gait,Activity Tolerance Assessment Summary pt is an 85 y/o F who is admitted for hyponatremia. pt with recent L TKA 02/26/25. pt is WBAT LLE from last ortho doctor's order last admission . pt requiring SBA for bed mobility, CGA for transfers and ambulation using fWW and mod to max A for stair climbing. This PT evaluated and worked with pt last admission and caregiver training was conducted at that time. spouse plans to assist pt at home. pt will benefit from HHPT. Goals Bed Mobility Goal Independent Transfer Goal Independent,Front Wheeled Walker Gait Goal Independent,Front Wheel Walker Gait Distance 75 Other Goals improve transfers and ambulation using 4WW SBA ~ 100 ft up/down 3 steps without rails using TELEPHONE ORDER SUPERVISOR + quad cane Days to Meet Goals 10 Frequency of Treatment Frequency Of Treatment Once a Day Treatment Plan Physical Therapy Treatment Plan Bed Mobility Training,Transfer Training,Gait Training, Therapeutic Exercise,Balance Retraining,Post Op Education, Discharge Planning,Hot or Cold Pack,Neuromuscular Re-ed, Coordination Retraining,Manual Therapy Recommendations To Nursing Amount of Assist Needed 1 Person Assist Discharge Recommendations PT Discharge Recommendations Home with 25/04 Assist Available,Home Health Transportation Needs at Discharge Private Vehicle - PT assist 1
--- NOTE | 2025-03-01 15:33 | CM.DANOTE ---
Initial DCP Assessment Note Pt is a 85 yo female, resident of [facility], s/p knee surgery 02/26, returns with complaint of left knee pain and swelling. Patient found to be constipated, abnormal labs identified and being managed. PCP: Pal DE JESUS in [facility] with [facility] Payer: MCR/[employer] Reviewed chart, pt discussed in multidisciplinary rounds this morning. ANA 03/02. Met w/patient who reports that she lives independently with spouse. Patient plans to return home w/their caregiver (who works x2 weekly, [employer] tasks) to transport home. Patient already arranged [facility]. Completed F2F, HH order and clinical emailed to [facility]. Provided patient with the senior resources booklet. Plan: Discharge home w/spouse, caregiver, [facility] via caregiver to transport. PAL Chatman Discharge Planning/Care Management CM Discharge Assessment Start: 02/28/25 19:58 Freq: Status: Active Protocol: Document 03/01/25 15:21 MARY (Rec: 03/01/25 15:33 MARY [id number]) Discharge Planning Assessment Assigned Harbor Tug Captain PAL Candelario DPOA/Assigned Designee Name Doreen Perez, spouse Contact Information [phone] Advance Directives? Yes Advance Directives on File No History Provided By Patient,Medical Record Has Patient been admitted in last 30 Yes days? Comment Patient discharged home 02/27. Prior Living Arrangements House Household Members spouse Type of transporation used prior to Drives own vehicle admit Independent with ADL's Yes Is patient alert and oriented? Yes Needs Assistance With Meal Prep,Home Chores / Shopping Patient/Family Preference Home with Home Health Barriers to Discharge No Discharge Plan Home with Home Health Transportation Arrangement Family Referrals Initiated Home Health Additional Comment [facility] SNF/HH Preference kendra Has Agency SNF been contacted Yes Comment Emailed F2F, HH order, clinical
--- NOTE | 2025-03-01 16:27 | OT.IP.EVAL ---
Current Diagnoses Pneumonia, unspecified organism (03/01/25) Past Medical History (Last Reviewed 02/28/25 @ 15:22 by Thelma Guevara PA-C) Anemia Anesthesia complication Anxiety Asthma Carotid artery disease Chronic sinusitis Fibromyalgia GERD (gastroesophageal reflux disease) HLD (hyperlipidemia) HTN (hypertension) Impaired fasting glucose Osteoarthritis Panic attacks PONV (postoperative nausea and vomiting) Ringing in ears Skin cancer Sleep apnea Vertigo Surgical History (Last Reviewed 02/28/25 @ 15:22 by Thelma Guevara PA-C) History of esophagogastroduodenoscopy (EGD) History of hysterectomy History of left-sided carotid endarterectomy (2012) History of right-sided carotid endarterectomy (~2007) History of surgery Hx of arthroscopy of left knee Hx of arthroscopy of right knee Hx of bilateral cataract extraction Hx of colonoscopy Hx of dilation and curettage Hx of sinus surgery Hx of toe surgery (12/23/23) Hx of tonsillectomy Status post trigger finger release Occupational Therapy Inpatient Evaluation/Re-Eval M1 PT/OT-IP Prior Functional Status Start: 03/01/25 14:57 Freq: NEEDED Status: Active Protocol: Document 03/01/25 13:57 AB (Rec: 03/01/25 15:15 AB [id number]) Medical Review Prior Functional Status Medical History Reviewed Yes Communication able to make needs known Mobility and Gait pt with recent L TKA 02/26/25 and went home 02/27/25. pt able to ambulate using 4WW with spouse assisting. Before L TKA, pt was independent with all mobilities and ambulation without AD Social History Household Members spouse Living Arrangements House Number of Floors (Floors) Two Floors Number of Stairs To Enter/Railing? pt stays on main level of the house Home Environment Standard Height Toilet,Walk in Shower Home Equipment Front Wheel Walker,Four Wheel Walker,Quad Cane,Straight Cane ,Manual Wheelchair,Shower Seat without Backrest,Hand Held Shower,Grab Bars In Shower Additional Social History Comment pt's spouse can assist but limited due to back issues FWW was ordered by spouse and should have arrived yesterday per pt. M1 PT/OT-IP Prior Functional Status Start: 03/01/25 16:01 Freq: NEEDED Status: Active Protocol: Document 03/01/25 16:02 RASHIDA (Rec: 03/01/25 16:26 [facility]) Medical Review Prior Functional Status Medical History Reviewed Yes Communication able to make needs known Mobility and Gait pt with recent L TKA 02/26/25 and went home 02/27/25. pt able to ambulate using 4WW with spouse assisting. Before L TKA, pt was independent with all mobilities and ambulation without AD Activities of Daily Living and IADL's pt reports being I with BADL prior to admission. pt and spouse have assistance 2x/wk for dairy store manager and errands as needed Social History Household Members spouse Living Arrangements House Number of Floors (Floors) Two Floors Number of Stairs To Enter/Railing? pt stays on main level of the house Home Environment Standard Height Toilet,Walk in Shower Home Equipment Front Wheel Walker,Four Wheel Walker,Quad Cane,Straight Cane ,Manual Wheelchair,Shower Seat without Backrest,Hand Held Shower,Grab Bars In Shower Additional Social History Comment pt's spouse can assist but limited due to back issues FWW was ordered by spouse and should have arrived yesterday per pt. M2 OT-IP Current Condition Start: 03/01/25 16:01 Freq: Status: Active Protocol: Document 03/01/25 16:02 RASHIDA (Rec: 03/01/25 16:26 [facility]) Occupational Therapy Current Condition Current Condition Evaluation Date 03/01/25 Treatment Diagnosis s/p complications following L TKA, nausea, vomitting Diagnosis Onset Date 03/01/25 Weight Bearing Status Weight Bearing Status Weight Bear as Tolerated M3 OT- IP Subjective and Pain Start: 03/01/25 16:01 Freq: Status: Active Protocol: Document 03/01/25 16:02 RASHIDA (Rec: 03/01/25 16:26 [facility]) OT- Subjective Occupational Therapy Visit Type Type Initial Evaluation Visit Start Time 14:25 Visit Stop Time 15:12 Notes Partial co-eval with PT. Pt agreeable to participate in skilled OT eval. Occupational Therapy Visit Comments Patient Comments I am ready to go home if I could just go to the bathroom. My leg is feeling much better now. Patient/Caregiver Goals to go home OT Pain Assessment Pain When Pain Assessed During Mobility Pain Present Pain Present Pain Reported Location Left Knee Intensity 4 Scale Used Numeric (0 - 10) Management Techniques Apply Cold,Re-positioning M4 OT- IP ADL's Start: 03/01/25 16:01 Freq: Status: Active Protocol: Document 03/01/25 16:02 [facility] (Rec: 03/01/25 16:26 [facility]) OT [id number] General Evaluation Self-Feeding Ability Independent Comments OT Self-Feeding Comments pt able to feed herself ice chips and drink warm broth I OT ADL-Grooming General Evaluation Grooming Ability Independent Comments OT Grooming Comments pt performed sink side hand washing I'y. Pt penn her hair I'ly. Pt applies deodorant on set up. OT ADL-Oral Care General Eval Oral Care Ability Independent Comments Oral Care Comments pt performed all parts of task sink side without assistance OT ADL-Dressing General Eval Upper Body Dressing Ability Minimal Assistance Lower Body Dressing Ability Minimal Assistance Areas Needing Assistance Retrieving/Set-up of Clothing Comments OT Dressing Comments Pt required min A to manage gown due to IV. Pt needed assist to remove L shoe but was otherwise I with LB dressing to include socks and brief. OT ADL-Toileting General Evaluation Toileting Ability Independent Comments OT Toileting Comments pt manages hygiene and clothing I'ly OT ADL-Bathing Bathing Type Bathing Type Sponge Bath General Evaluation Areas Needing Assistance Retrieving/Setting Up Items Comments OT Bathing Comments Pt performed sponge bath with wipes while seated in chair. Pt required OT to gather supplies. Pt was able to wash all parts without assistance. Setup only assistance required . M5 OT- IP IADL's Start: 03/01/25 16:01 Freq: Status: Active Protocol: Document 03/01/25 16:02 [facility] (Rec: 03/01/25 16:26 [facility]) OT-Instrumental Activities of Daily Living Deficits IADL Deficits Identified No Deficits Home Safety Awareness Awareness of Need for Assistance at Home Good Awareness Medication Management Medication Management No Deficits Identified Money Management Money Management No Deficits Identified Meal Preparation Meal Preparation Caregiver Provides Assist Active Directory Administrator Active Directory Administrator Caregiver Provides Assist Driving Driving Caregiver Provides Assist M6 OT- IP Functional Cognition Start: 03/01/25 16:01 Freq: Status: Active Protocol: Document 03/01/25 16:02 [facility] (Rec: 03/01/25 16:26 [facility]) Cognitive Factors Limiting Selfcare Function Cognitive Ability Level of Alertness Alert Patient Orientation Name,Age,Birthday,Month,Date, Year,Day of Week,Place, Situation Attention Span Ability Capable of Focused Attention, Capable of Sustained Attention Ability to Follow Commands Able to Follow One Step Commands Memory Description No Deficits Noted Safety Awareness No Deficits Noted Problem Solving Ability No deficits Noted Executive Function Ability No Deficits Noted Abstract Thinking Ability No Deficits Noted OT- Vision and Hearing OT- Hearing Assessment OT- Hearing Assessment WFL OT- Vision Assessment Visual Acuity WFL M7 OT- IP Mobility and Balance Start: 03/01/25 16:01 Freq: Status: Active Protocol: Document 03/01/25 16:02 [facility] (Rec: 03/01/25 16:26 [facility]) OT- Bed Mobility Assessment Rolling Type of Rolling Roll to Right Level of Assistance Independent Supine to Sit Supine to Sit Assist Standby Assistance Sit to Supine Sit to Supine Assist Standby Assistance Scooting Scooting to Edge of Bed Independent OT-Transfer Assessment Sit to and From Stand Sit to and from Stand Contact Guard Assistance Transfers Transfer Ability Contact Guard Assistance Technique Transfer Destination Bed,Bedside Commode,Chair Transfer Technique Stand Step Pivot Devices Transfer Assistive Devices Gait Belt,Front Wheeled Walker Comments Mobility Comments pt requires cues for sequencing with bed mobility. pt performs functional t/fs with CGA and assistance in managing IV pole. OT- Gait Assessment Gait Gait Assistance Required: Standby Assistance,Contact Guard Assist Assistive Devices Assistive Device Gait Belt,Front Wheeled Walker Comments Gait Ability Comments pt performs mobility from BSC to bed and bed to chair. Pt needs OT to manage IV pole and is otherwise SBA. OT- Balance Assessment Sitting Balance and Reactions Static Sitting Balance Ability Normal Dynamic Sitting Balance Ability Normal Standing Balance and Reactions Static Standing Balance Ability Normal Dynamic Standing Balance Ability Good M8 OT- IP Objective Assessments Start: 03/01/25 16:01 Freq: Status: Active Protocol: Document 03/01/25 16:02 RASHIDA ([facility]01[facility]25 [facility]:26 [facility] Gross Range of Motion Upper Extremity Range of Motion Assessment Within Functional Limits OT Strength Upper Extremity Strength Assessment Within Functional Limits Hand Sales Special Agent Strength Hand Dominance Right Comments Strength Comments B UE 4+ to 5/5 OT-Muscle Tone Assessment Muscle Tone WNL Yes OT Sensation Assessment Edema Edema Present Edema Comments Pt has prevalent edema from L mid thigh to calf. M9 OT- IP Assessment and Plan Start: 03/01/25 16:01 Freq: Status: Active Protocol: Document 03/01/25 16:02 [facility] (Rec: 03/01/25 16:26 [facility]) OT Summary Assessment and Plan Potential Rehabilitation Potential Excellent Analytic Complexity at Evaluation Low Summary OT Impairments Pain,Balance,Functional Mobility,Dressing,Toilet Transfers,Shower Transfers, Activity Tolerance Progress Towards Goals Progressing Toward Goals Assessment Summary Pt is 85 yo F who had a L TKA on 02/26/25. Pt was d/c home but had subsequent nausea, vomiting, and swelling of L LE presenting to ED with subsequent admission. Pt presents as a low complexity evaluation. Pt is progressing well and IND with most activities today. Pt requires min A for dressing and SBA-CGA for functional t/fs. She is requesting to go home today. Pt has her at home who can help her. Pt would benefit from 1-2 more OT sessions if pt stays overnight. Goals Dressing Goal Independent Toilet Transfer Goal Independent Shower Transfer Goal Independent Days to Meet Goals 5 Frequency of Treatment Other frequency 5x/wk Treatment Plan OT Treatment Plan ADL Training,Functional Mobility,Therapeutic Exercises ,Patient/Family Education, Discharge Planning Discharge Recommendations OT Discharge Recommendations Home with Assistance Transportation Needs at Discharge Private Vehicle
[2025-03-01] MEDS: BISACODYL 10 MG SUPP PR (16:44)
[2025-03-01] MEDS: AZITHROMYCIN 500 MG in DEXTROSE 5% IN WATER 250 ML 250 MG IV (17:31)
--- NOTE | 2025-03-01 17:35 | P.PN_ITS ---
Subjective Subjective Interval history: 85 year old female with PMH of HTN admitted with hyponatremia yesterday. Na has improved to 130. She has minimal appetite still today, abdomen feels distended. She has not had a bowel movement. Awaiting PT/OT evaluation. Exam Vital Signs (past 8 hours): Oxygen Delivery Method Room Air Oxygen Flow Rate 0 Narrative Exam Narrative: Physical Exam: GENERAL: The patient is not in any acute distressed. Awake and alert. HEENT: Nonicteric sclerae, PERRLA, EOMI. Oropharynx clear. Moist mucous membranes. Conjunctivae appear well perfused. HEART: Regular rate and rhythm without murmurs. No lower extremities edema. LUNGS: Clear to auscultation bilaterally. No wheezing, crackles or rhonchi ABDOMEN: Soft, positive bowel sounds, nontender. SKIN: some left knee swelling with no drainage from surgical wound sites. No rash, no excessive bruising, petechiae, or purpura. NEUROLOGIC: AxO x 3. Cranial nerves II-XII intact without motor/sensory deficit. Objective Labs 03/01/25 06:24 03/01/25 06:24 Labs: Laboratory Results - last 24 hr 02/28/25 03/01/25 03/01/25 18:11 02:57 06:24 WBC 10.0 RBC 3.56 L Hgb 10.7 L Hct 30.4 L MCV 85.5 MCH 30.1 MCHC 35.3 RDW 12.9 Plt Count 186 Neut % (Auto) 70.4 Lymph % (Auto) 7.8 L [place] % (Auto) 21.7 H Eos % (Auto) 0.0 L Baso % (Auto) 0.1 Neut # (Auto) 7000 Lymph # (Auto) 800 L [place] # (Auto) 2200 H Eos # (Auto) 0 Baso # (Auto) 0 Sodium 125 L 130 L Potassium 3.8 3.7 Chloride 91 L 99 Carbon Dioxide 26 27 BUN 13 11 Creatinine 0.53 0.62 Estimated GFR > 60 > 60 BUN/Creatinine Ratio 24.5 H 17.7 Glucose 121 H 116 H Calcium 8.6 8.5 Total Bilirubin 0.7 AST 35 ALT 14 Alkaline Phosphatase 66 Ammonia < 9 L Total Protein 6.2 L Albumin 3.5 Globulin 2.7 Albumin/Globulin Ratio 1.3 [facility] Medical History Vertigo Anesthesia complication PONV (postoperative nausea and vomiting) Skin cancer Osteoarthritis Impaired fasting glucose Sleep apnea Asthma Ringing in ears Panic attacks HTN (hypertension) HLD (hyperlipidemia) GERD (gastroesophageal reflux disease) Fibromyalgia Chronic sinusitis Anxiety Anemia Carotid artery disease Surgical History History of surgery Status post trigger finger release Hx of toe surgery (12/23/23) Hx of arthroscopy of left knee Hx of arthroscopy of right knee Hx of tonsillectomy History of esophagogastroduodenoscopy (EGD) Hx of colonoscopy History of hysterectomy Hx of dilation and curettage History of left-sided carotid endarterectomy (2012) History of right-sided carotid endarterectomy (~2007) Hx of sinus surgery Hx of bilateral cataract extraction Social History household members: spouse Smoking Status: Never smoker alcohol intake: former Assessment & Plan Assessment & Plan narrative: Hyponatremia. Na 123 on admit. Up to 130 today. Likely from dehydration due to decreased PO intake. Continue IVF with NS and monitor sodium for now. Possible atypical pneumonia. - minimal symptoms on admission, equivocal imaging possible atypical infection. Did have leukocytosis now improved. Change from IV ceftriaxone and azithro to PO augmentin. 5 day course recommended. Recent left knee arthroscopy. Clinically the patient does not have increasing erythema of the left knee or signs of wound infection. Ultrasound of left lower leg shows no DVT. Per orthopedic surgeon Dr. Zabala continue with pain control PT OT. Dr. Zabala will consult in the morning. Constipation - likely opiate related due to pain management with opiates. Aggressive laxative therapies started, prn suppository ordered as well. Consider methylnaltrexone if no progress and remains with decreased PO intake. Mild hyperglycemia glucose 120s monitor glucose with subcu insulin as needed. Hypertension. resumed home atenolol. DVT prophylaxis heparin subcu. CODE STATUS full code. Disposition likely home in 1-2 days. Pending PT/OT evaluation for possible yet unlikely SNF. Code: Full Dispo: Inpatient, likely home 1-2 more days. Time-Based Coding :: [TOTAL MINUTES] spent with patient and on the chart (including review of chart, obtaining history, exam, reviewing outside data, placing orders, documenting exam and treatment plan, and counseling patient) on [DATE].
[2025-03-01 20:00] VITALS: BP 173/75; PULSE 78; RESP 19; TEMP 36.4; O2SAT 96
[2025-03-01] MEDS: FAMOTIDINE 20 MG TABLET PO (20:26)
[2025-03-01] MEDS: atenoloL 25 MG TABLET PO (20:26)
[2025-03-01] MEDS: SENNOSIDES 8.6 MG TABLET 17.2 MG PO (20:26)
[2025-03-01] MEDS: AMOXICILLIN/CLAV 875/125 MG 1 TAB PO (20:27)
[2025-03-01] MEDS: LACTULOSE 20 GM/30 ML SOLUTION PO (20:27)
[2025-03-02] MEDS: ACETAMINOPHEN 325 MG TABLET 650 MG PO ×2 (01:04→06:34)
[2025-03-02] MEDS: SODIUM CHLORIDE 0.9% 1,000 ML 75 ML IV (01:05)
[2025-03-02] MEDS: ALPRAZolam 0.25 MG TABLET 0.5 MG PO (01:58)
--- NOTE | 2025-03-02 06:09 | PC.NURSE ---
This journalists and other writers took pt to the bathroom and noticed pt is bleeding from the rectum after having a bowel movement. RN notified and aware.
[2025-03-02 08:11] LABS: Add Manual Diff / Slide Review NO; Basophils Absolute Auto 100 /uL (0-100); Basophils Percent Auto 0.7 % (0-2); Eosinophils Absolute Auto 0 /uL (0-450); Hematocrit 28.4 % (36-46); Hemoglobin 9.8 g/dL (12.0-16.0); Lymphocytes Absolute Auto 700 /uL (1100-4500); Lymphocytes Percent Auto 5.3 % (25-40); Mean Corpuscular HGB Conc 34.6 % (30-36); Mean Corpuscular Hemoglobin 29.8 PG (26-34); Mean Corpuscular Volume 86.2 fL (80-100); Monocytes Absolute Auto 2000 /uL (0-900); Monocytes Percent Auto 15.5 % (3-14); Neutrophils Absolute Auto 10000 /uL (1500-7000); Neutrophils Percent Auto 78.5 % (50-75); Platelet Count 181 X10^3/uL (150-400); Red Cell Distribution Width 12.8 % (11.6-14.8); White Blood Cell Count 12.8 X10^3/uL (4.5-11.0)
[2025-03-02 08:21] LABS: BUN Creatinine Ratio 22.2 (6-22); Blood Urea Nitrogen 12 mg/dL (7-17); Calcium 8.2 mg/dL (8.4-10.2); Carbon Dioxide 25 mmol/L (22-32); Chloride 104 mmol/L (98-107); Estimated Glomerular Filt Rate > 60 mL/min (>60); Glucose 112 mg/dL (70-99); HEMOLYSIS < 15 (0-50); Magnesium 1.9 mg/dL (1.6-2.3); Potassium 3.2 mmol/L (3.4-5.1); Sodium 134 mmol/L (137-145)
[2025-03-02 09:20] VITALS: BP 149/52; PULSE 71; RESP 18; TEMP 36.6; O2SAT 99
[2025-03-02] MEDS: HEPARIN 5,000 UNIT/ML VIAL 5000 UNIT SUBCUT (09:23)
[2025-03-02] MEDS: AMOXICILLIN/CLAV 875/125 MG 1 TAB PO (09:23)
--- NOTE | 2025-03-02 09:25 | PT.IPTN ---
Current Diagnoses Pneumonia, unspecified organism (03/01/25) Physical Therapy Treatment Note M2 PT-IP Current Condition Start: 03/01/25 14:57 Freq: NEEDED Status: Active Protocol: Document 03/01/25 13:57 AB (Rec: 03/01/25 15:15 AB [id number]) Physical Therapy Current Condition Current Condition Evaluation Date 03/01/25 Treatment Diagnosis hyponatremia; s/p L TKA; difficulty in walking Onset Date 03/01/25 M3 PT-IP Subjective Start: 03/01/25 14:57 Freq: NEEDED Status: Active Protocol: Document 03/02/25 09:25 AB (Rec: 03/02/25 12:13 AB Desktop) Subjective Physical Therapy Visit Type Type Treatment Note Visit Start Time 09:25 Visit Stop Time 09:56 Number of INDUSTRIAL RELATIONS OFFICER Visits 0 Physical Therapy Visit Comments Patient Comments agreeable to do PT Therapy Pain Assessment Pain When Pain Assessed At Rest Pain Present Pain Present Pain Reported Location Left Knee Intensity 4 Scale Used increases to 5/10 with mobility Pain Behaviors Guarding Pain Management Techniques Apply Cold,Distraction, Modification of Treatment,Re- positioning,Timing of Activity with Medications M4 PT-IP Mobility and Gait Start: 03/01/25 14:57 Freq: NEEDED Status: Active Protocol: Document 03/02/25 09:25 AB (Rec: 03/02/25 12:13 AB Desktop) PT-Bed Mobility Assessment Supine to Sit Supine to Sit Standby Assistance,Head of Bed Elevated Sit to Supine Sit to Supine Standby Assistance PT-Transfer Assessment Sit to and From Stand Sit to and from Stand Contact Guard Assistance,1 Person Assistance,Use of Upper Extremities Equipment Transfer Assistive Device Gait Belt,Front Wheeled Walker Orthotic/Prosthetic Devices or Brace: No Gait Assessment Gait Gait Assistance Required: Contact Guard Assist,Minimum Assistance,1 Person Assist Distance (Feet) 35 Able to Maintain Weight Bearing Status Yes During Gait Assistive Devices Assistive Device Gait Belt,Front Wheeled Walker Orthotic/Prosthetic Devices or Brace: No Gait Deviations General Gait Pattern Antalgic,Decreased Stride Length,Decreased Feet Clearance Factors Limiting Gait Function Factors Limiting Gait Function Decreased Activity Tolerance, Limited Range of Motion,Pain, Poor Balance,Poor Safety Awareness Comments Gait Comments pt in bed and agreed to do PT but wants to go back to bed afterwards. supine to sit SBA with HOB elevated. pt stated that L knee is feeling better. sit to stand CGA and ambulated in room using FWW ~ 35 ft CGA to min A. cued for L quads activation. pt can also be impulsive. cued to slow down for safety. pt sat back on EOB. completed LAQs. sit to supine SBA. positioned pt in bed. call light and table placed within reach. M5 PT-IP Objective Assessments Start: 03/01/25 14:57 Freq: NEEDED Status: Active Protocol: Document 03/01/25 13:57 AB (Rec: 03/01/25 15:15 AB [id number]) Orientation Orientation/Cognition Level of Alertness Alert Orientation Name,Place,Situation Language Function Ability Hard of Hearing Safety Awareness Decreased Safety Awareness Memory Description No Deficits Noted Gross Range of Motion Lower Extremity ROM Impairments L knee flexion: ~ 70 deg Strength Lower Extremity Strength Assessment Left Impaired Knee 3+/5 Muscle Tone Muscle Tone WNL Yes M6 PT-IP Treatment Start: 03/01/25 14:57 Freq: NEEDED Status: Active Protocol: Document 03/02/25 09:25 AB (Rec: 03/02/25 12:13 AB Desktop) Physical Therapy Treatment Other Treatments Other Treatment Performed LAQs completed seated on EOB with 5 sec hold x 5 reps M7 PT-IP Assessment and Plan Start: 03/01/25 14:57 Freq: NEEDED Status: Active Protocol: Document 03/02/25 09:25 AB (Rec: 03/02/25 12:13 AB Desktop) PT Summary Assessment and Plan Potential Rehabilitation Potential Good Summary Impairments Pain,ROM,Strength,Balance, Coordination,Sensation,Tone, Cognition,Bed Mobility, Transfers,Gait,Activity Tolerance Progress Towards Goals Progressing Toward Goals Assessment Summary pt requiring CGA to min A with ambulation using FWW. pt plans to go home and spouse will assist pt at home. pt will benefit from HHPT. Goals Bed Mobility Goal Independent Transfer Goal Independent,Front Wheeled Walker Gait Goal Independent,Front Wheel Walker Gait Distance 75 Other Goals improve transfers and ambulation using 4WW SBA ~ 100 ft up/down 3 steps without rails using FOLDING MACHINE TENDER + quad cane Days to Meet Goals 10 Frequency of Treatment Frequency Of Treatment Once a Day Treatment Plan Physical Therapy Treatment Plan Bed Mobility Training,Transfer Training,Gait Training, Therapeutic Exercise,Balance Retraining,Post Op Education, Discharge Planning,Hot or Cold Pack,Neuromuscular Re-ed, Coordination Retraining,Manual Therapy Recommendations To Nursing Amount of Assist Needed 1 Person Assist Discharge Recommendations PT Discharge Recommendations Home with 25/04 Assist Available,Home Health Transportation Needs at Discharge Private Vehicle - PT assist 1
[2025-03-02] MEDS: POTASSIUM CHLORIDE 20 MEQ TAB 40 MEQ PO (09:58)
--- NOTE | 2025-03-02 10:37 | P.DS_ITS ---
History of Present Illness History of Present Illness Date Patient Seen: 03/02/25 Time Patient Seen: 10:40 Chief complaint: Left knee surgery, sent by for poss blood clot Narrative: Per admitting provider, 85-year-old female past medical history of hyperlipidemia, hypertension, anxiety and recent left total knee arthroplasty on February 26, [address] Zabala presents with left knee pain and swelling. Per the patient report, the patient was discharged yesterday after her surgery of her left knee 2 days ago. The patient started to notice some left knee swelling and increasing pain after being home. The patient also had some nausea, vomiting with subjective fever and chills. Due to ongoing nausea and vomiting the patient has poor oral intake. The patient called Dr. Zabala and recommended to come into the ER for an ultrasound of her leg. The patient otherwise denies any abdominal pain, chest pain, diarrhea, dysuria or coughing. The patient reports that she has not had any bowel movement since Tuesday though she is able to passing some gas. In the emergency room, the patient was hemodynamically stable. WBC was 14,000 sodium 125 glucose 121 lactate was normal. UA was also negative. Chest x-ray does possible atypical pneumonia. Ultrasound of left lower leg shows no DVT. Dr. Zabala recommended admission to the hospital for pain control. The patient received IV ceftriaxone and IV azithromycin. Discharge Providers Provider Date of admission: 03/01/25 12:20 Discharge Date: 03/02/25 Primary care physician: Pal Vuong MD Consults: 03/01/25 11:29 Consult to Occupational Therapy Evaluate & Treat Comment: Physician Instructions: Evaluate and treat Consult to Physical Therapy Evaluate & Treat Comment: Physician Instructions: Evaluate and Treat 03/01/25 15:29 Consult to Home Health Routine Comment: Reason For Exam: Home health services upon discharge Discharge provider: José Luis Pedro DO Summary Hospital Course Discharge Diagnosis: Hyponatremia. improved. POA Possible atypical pneumonia, likely ruled out. Recent left knee arthroscopy. Constipation Hypertension. Hospital Course: This is an 85 year old female with recent left knee arthroscopy who was admitted to the hospital with hyponatremia. This was hypovolemic etiology as this did improve with IV fluids. Dehydration was likely due to obstipation after recent surgery. She was able to have a bowel movement with aggressive laxative therapy though did have some hemorrhoidal bleeding which stopped. H/h downtrended but she had no ongoing signs or symptoms of anemia or active bleeding and was likely partially dilutional due to IV fluids. She had mild leukocytosis and initially was started on antibiotics for pneumonia but she had no ongoing symptoms so antibiotics were stopped at the time of discharge. Her sodium improved to 134 and she did well enough with therapies to discharge home. No medication changes were recommended at the time of discharge. Patient's PCP had recently prescribed HCTZ which she had not started, and I would recommend against HCTZ given her hyponatremia this admission. Time Spent with Patient Time spent: Greater than 30 minutes Exam Vital Signs (past 8 hours): - 03/02/25 09:20 Temperature 97.8 F Pulse Rate 71 Respiratory Rate 18 Blood Pressure 149/52 H Pulse Oximetry 99 Oxygen Flow Rate 0 Oxygen Delivery Method Room Air Oxygen Flow Rate 0 Narrative Exam Narrative: Physical Exam: GENERAL: The patient is not in any acute distressed. Awake and alert. HEENT: Nonicteric sclerae, PERRLA, EOMI. Oropharynx clear. Moist mucous membranes. Conjunctivae appear well perfused. HEART: Regular rate and rhythm without murmurs. No lower extremities edema. LUNGS: Clear to auscultation bilaterally. No wheezing, crackles or rhonchi ABDOMEN: Soft, positive bowel sounds, nontender. SKIN: some left knee swelling with no drainage from surgical wound sites. No rash, no excessive bruising, petechiae, or purpura. NEUROLOGIC: AxO x 3. Cranial nerves II-XII intact without motor/sensory deficit. Objective Labs 03/02/25 08:00 03/02/25 08:00 Labs: Laboratory Results - last 24 hr 03/02/25 08:00 WBC 12.8 H RBC 3.30 L Hgb 9.8 L Hct 28.4 L MCV 86.2 MCH 29.8 MCHC 34.6 RDW 12.8 Plt Count 181 Neut % (Auto) 78.5 H Lymph % (Auto) 5.3 L [place] % (Auto) 15.5 H Eos % (Auto) 0.0 L Baso % (Auto) 0.7 Neut # (Auto) 51803 H Lymph # (Auto) 700 L [place] # (Auto) 2000 H Eos # (Auto) 0 Baso # (Auto) 100 Sodium 134 L Potassium 3.2 L Chloride 104 Carbon Dioxide 25 BUN 12 Creatinine 0.54 Estimated GFR > 60 BUN/Creatinine Ratio 22.2 H Glucose 112 H Calcium 8.2 L Magnesium 1.9 PFSH Medical History Vertigo Anesthesia complication PONV (postoperative nausea and vomiting) Skin cancer Osteoarthritis Impaired fasting glucose Sleep apnea Asthma Ringing in ears Panic attacks HTN (hypertension) HLD (hyperlipidemia) GERD (gastroesophageal reflux disease) Fibromyalgia Chronic sinusitis Anxiety Anemia Carotid artery disease Surgical History History of surgery Status post trigger finger release Hx of toe surgery (12/23/23) Hx of arthroscopy of left knee Hx of arthroscopy of right knee Hx of tonsillectomy History of esophagogastroduodenoscopy (EGD) Hx of colonoscopy History of hysterectomy Hx of dilation and curettage History of left-sided carotid endarterectomy (2012) History of right-sided carotid endarterectomy (~2007) Hx of sinus surgery Hx of bilateral cataract extraction Social History household members: spouse Smoking Status: Never smoker alcohol intake: former Discharge Plan Discharge Plan Patient Disposition: Home Health Service Provider Discharge Comment: You were admitted to the hospital with low sodium and dehydration, possibly due to constipation after surgery. Sodium now improved. No changes to home medications recommended. continue daily miralax unless stools become liquid or watery then you can stop. If no bowel movements for 2 days recommend addition of either senna, milk of mag, or bisacodyl which are OTC medications. Discharge orders & Medications Prescriptions: Continued atenolol 25 mg Tablet 25 mg PO BEDTIME acetaminophen 500 mg Tablet 1,000 mg PO TID MDD 3000 famotidine 20 mg Tablet 20 mg PO BEDTIME loratadine [Claritin] 10 mg Tablet 10 mg PO BEDTIME PRN (Reason: Seasonal allergies) alprazolam 0.5 mg tablet 0.5 mg PO BEDTIME Follow up/Referrals: Pal Vuong MD [Primary Care Provider] - Diet/Activity/Treatments Diet: Diet as Tolerated and Regular Activity: Per previous instructions from orthopedics Visit Report/Discharge Packet Instructions: DI for Constipation Stand Alone Forms: Patient Portal/API, Stroke Signs & Symptoms Discharge Data Primary Care Provider: Pal Vuong
--- NOTE | 2025-03-02 10:58 | CM.DPC ---
DCP Discharge Home with HH Per MD, pt's labs improved and medically stable to d/c home with HH today and no identified barriers to discharge. [facility] confirms they can accept the referral and have pt on their schedule to start HH services in two days on 03/04/25. secure emailed discharge summary to review by [facility]. PAL Freed
--- NOTE | 2025-03-02 14:21 | PC.NURSE ---
Removed pt PIV, pt tolerated well. No tele, no belongings in safe or phamarcy, no meds in drawer. Provided pt education to pt and friend re: constipation prevention, meds, and follow ups. Pt and friend stated all questions answered. All belongings with patient. Pt escorted via wheelchair by PCT Federica.
== END 2025-03-02 14:22 | disposition home health service (06) | DRG 640 ==
LOC: ED 19:35 → AC 03-01 09:07
PROVIDERS: Internal Medicine; Admitting Provider Internal Medicine; Emergency Provider Physician Assistant; PCP Psychiatry & Neurology Forensic Psychiatry; Referring Provider Physician Assistant; Visit Provider Internal Medicine
DX: E87.1 Hypo-osmolality and hyponatremia (principal); J18.9 Pneumonia, unspecified organism; E86.0 Dehydration; R73.9 Hyperglycemia, unspecified; I10 Essential (primary) hypertension; K59.03 Drug induced constipation; T40.605A Adverse effect of unspecified narcotics, initial encounter; R11.2 Nausea with vomiting, unspecified; K21.9 Gastro-esophageal reflux disease without esophagitis; F41.9 Anxiety disorder, unspecified; Z96.652 Presence of left artificial knee joint
CPT/HCPCS: 36415; 71045; 73562; 74177; 80048; 80053; 81001; 82140; 82550; 82962; 83605; 83690; 83735; 84145; 84484; 85025; 85651; 86140; 87040; 93005; 93971; 96361; 96365; 96366; 96367; 96375; 97116; 97161; 97165; 97530; 97535; 99284; G0378; A9270; J0696; J1644; J2405; J2765; J3475; Q9967